=== PATIENT | male | born 1960 | race Caucasian/White ===

== ENCOUNTER → 2020-01-13 06:10 | Outpatient (CLI) | payer BC, MEDICAID, SELFPAY ==
--- NOTE | 2020-01-13 06:13 | CA_ITS ---
APPROVED REPORT EXAM: Comprehensive 2D, Doppler, and color-flow Echocardiogram Certified Hyperbaric Technician: Valentine Almanza RDCS Ht: 5 ft 9 in Wt: 274lbs BSA: 2.36 BP: 126/76 mmHg Indications: CP,CAD,HTN,HLP,OBESITY,SOA 2D Dimensions LVOT 1.90 cm (M/F) 1.5-2.5 M-Mode Dimensions RVDd 4.04 cm (0.9-2.6) LVDd 6.34 cm (3.5-5.7) LVDs 4.04 cm (3.5-5.7) IVSd 0.66 cm (0.6-1.1) PWd 0.94 cm (0.6-1.1) EF (Teich) 64.90% FS 36.30% EDV (Teich) 204.10 mL ESV (Teich) 71.70 mL LV Diastology E/A Ratio 1.27 Mitral Valve MV A Velocity 54.00 (40-130 cm/s) Left Ventricle Left atrium is mildly enlarged, left ventricle is normal size, there is no concentric left ventricular hypertrophy, visually estimated ejection fraction 55% with no regional wall motion abnormality, diastolic parameters are within normal range. Right Ventricle Right atrium and right ventricle are mildly enlarged with normal contractility. Aortic Valve Aortic valve is minimally thickened and fibrosed, there is no aortic stenosis or aortic insufficiency. Mitral Valve Mitral valve is grossly normal, there is mild mitral regurgitation. Tricuspid Valve Tricuspid valve is grossly normal, there is mild tricuspid regurgitation, tricuspid regurgitation jet velocity is inadequate for calculation of the right ventricular systolic pressure. Pulmonic Valve Pulmonic valve is poorly visualized. Great Vessels Aortic root is normal size. Pericardium No significant pericardial effusion noted. Conclusion 1. Mild biatrial enlargement, normal left ventricular size, visually estimated ejection fraction 55% with no regional wall motion abnormality, diastolic parameters are within normal range. 2. Mildly enlarged right ventricle with normal contractility. 3. Mild mitral and tricuspid regurgitation. 4. No significant pericardial effusion noted. Electronically signed by : Constantin Medina, 01/13/2020 20:26:39
--- NOTE | 2020-01-13 06:32 | CA_ITS ---
APPROVED REPORT Exam: Pharmacologic Technologist: Ana Stahl Ht: 5 ft 9 in Wt: 270 lbs BSA: 2.35 m2 HR: 70 bpm BP: 146/88 mmHg Indications: Angina Medical History Medications: Amlodipine,,,,, Aspirin,,,,, Ramipril,,,,, FeNOfibrate,,,,, BisOPROLOL,,,,, Stress Test Details Test: LEXISCAN HR Resting HR: 74 bpm Max Heart Rate (APMHR): 161 bpm Max HR Achieved: 99 bpm Target HR (85% APMHR): 136 bpm % of APMHR: 61 Recovery HR: 86 bpm BP Resting BP: 146.0/88.0 mmHg Max BP: 146.0/88.0 mmHg Recovery BP: 138.0/74.0 mmHg ECG Clinical Exercise duration: 04:00 min Highest Stage Achieved: Exercise capacity: 1.0 METs Stress ECG Conclusion Resting ECG: Normal sinus rhythm, low voltage QRS Symptoms: Mild chest discomfort, shortness of air, malaise, mild nausea Arrhythmias/Ectopy: None ST-T Changes: No significant changes. Conclusion: Unremarkable Lexiscan stress. Myoview images reported separately. Electronically signed by : Constantin Medina, 01/13/2020 20:43:45
--- NOTE | 2020-01-13 06:32 | NM_ITS ---
APPROVED REPORT Exam: Nuclear Stress Test Indication: H/O UT, HTN, C.P., SOB, PALPITATIONS Patient Location: Outpatient Stress Tech: Ana Stahl [place] Tech:Cara Medina ARRFede RT(R)(N) Ht: 5 ft 9 in Wt: 270 lbs HR: 70 bpm BP: 146/88 mmHg BSA: 2.35 m2 BMI: 39.8 History: H/O UT, HTN, C.P., SOB, PALPITATIONS Procedure: Patient received a 0.4 mg of intravenous Lexiscan, resting heart rate 70 bpm, resting blood pressure 146/88 mmHg, with Lexiscan maximum heart rate achived was 95 bpm which is Less than 85 % of the maximum predicted heart rate and blood pressure was 125/77 mmHg. Electrocardiogram Resting electrocardiogram showed sinus rhythm right ventricular conduction delay, with Lexiscan there is less than 1.[address] segment depression noted from the baseline EKG. The EKG portion of the Lexiscan Myoview is nondiagnostic. Cardiac Stress and Resting SPECT Images: Cardiac Stress and Resting SPECT images were obtained using technetium 99m Myoview 31.5 mCi stress and 10.13 mCi at rest. Gated SPECT with analysis of segmental wall motion and calculation of the ejection fraction also done. Cardiac stress and resting SPECT images show mild decreased tracer activity in the posterolateral wall which improves on the resting images suggestive of reversible ischemia, computer derived ejection fraction is 62% with no regional wall motion abnormality, right ventricle is normal size and contractility. Conclusion: 1. The EKG portion of the Lexiscan Myoview is nondiagnostic. 2. Scintigraphic evidence of mild reversible ischemia involving the posterolateral wall, computer derived ejection fraction is 62% with no regional wall motion abnormality, right ventricle is normal size and contractility. 3. Abnormal Lexiscan Myoview study. Electronically signed by : Constantin Medina, 01/13/2020 20:46:03
--- NOTE | 2020-01-13 08:53 | HMH.ITSHM ---
Current Home Medications as stated by this patient Tommy Johnston or patient care representative. [] ramipril amlodipine fenofibrate bisoprolol omeprazole
== END ==
PROVIDERS: PCP Family Medicine; Visit Provider Internal Medicine Cardiovascular Disease
DX: E78.2 Mixed hyperlipidemia (principal); F41.9 Anxiety disorder, unspecified; I11.9 Hypertensive heart disease without heart failure; I20.9 Angina pectoris, unspecified; R06.00 Dyspnea, unspecified
CPT/HCPCS: 78452; 93017; 93306; A9502; J2785

== ENCOUNTER 2020-02-02 09:22 | Day surgery (SDC) | payer BC, MEDICAID, SELFPAY ==
[2020-02-02] VITALS (19 sets, daily range): BP systolic 103–134; BP diastolic 63–83; PULSE 56–79; RESP 15–18; TEMP 36.7; O2SAT 89–98; BMI 40.6
--- NOTE | 2020-02-02 | IR_ITS ---
APPROVED REPORT Patient Location: Outpatient Court Administrator: STEPHEN Avendaño RT (R) PROCEDURES Left heart catheterization Left ventriculogram Selective coronary angiogram INDICATION Abnormal Myoview, Angina pectoris Informed consent was obtained prior to the procedure. COMPLICATIONS NONE Estimated Blood Loss: LESS THAN 10 ML TECHNIQUE One percent lidocaine was used to anesthetize the right groin. The right femoral artery was accessed via the Seldinger technique. A 4-Swedish sheath was placed in the right femoral artery. The JL-4 and JR-4 catheter was also used to perform left heart catheterization left ventriculogram and selective coronary angiogram. At the end of the procedure the patient was transferred to the post-op holding area in stable condition for arterial sheath removal.. ANGIOGRAPHIC RESULTS The left main artery Normal The left anterior descending artery Mild proximal and mid vessel 10% luminal irregularities The circumflex artery Nondominant with mild 10% luminal irregularities The right coronary artery Dominant with mild 10% luminal irregularities The CARNEY ventriculogram reveals Normal 65% The left ventricular end-diastolic pressure Moderate to severely elevated at 30 mmHg IMPRESSION Mild vun-[id number] coronary disease Normal ejection fraction Elevated left ventricular end-diastolic pressure consistent with advanced diastolic dysfunction PLAN 1. Medical management 2. We will add Lasix 20 mg daily to current regimen in order to decrease LVEDP while asking patient to also decrease sodium and fluid intake Electronically signed by : Robert Ceja, 02/02/2020 12:18:13
[2020-02-02 10:01] LABS: Basophils # 0.1 K/mm3 (0-0.2); Eosinophils # 0.9 K/mm3 (0.0-0.4); Eosinophils % 9.1 % (0.1-12.0); Hematocrit 40.4 % (42.0-52.0); Hemoglobin 14.2 g/dL (14.1-18.0); Lymphocytes # 2.9 K/mm3 (0.7-4.5); Lymphocytes % 29.1 % (10-50); Mean Corpuscular HGB Conc 35.1 g/dL (31.8-35.4); Mean Corpuscular Hemoglobin 32.7 pg (27.0-31.2); Mean Corpuscular Volume 93.2 fl (80-94); Mean Platelet Volume 8.8 fl (7.4-10.4); Monocytes # 0.5 K/mm3 (0.1-1.0); Monocytes % 4.6 % (1.7-9.3); Neutrophils # 5.5 K/mm3 (1.8-7.8); Neutrophils % 56.2 % (37.0-80.0); Platelet Count 296 K/mm3 (142-424); Red Blood Count 4.34 M/mm3 (4.60-6.20); Red Cell Distribution Width 13.7 % (11.5-17.5); White Blood Count 9.8 K/mm3 (4.8-10.8)
[2020-02-02 10:07] LABS: Chloride 107 mmol/L (98-107); Potassium 4.5 mmoL/L (3.5-5.1); Sodium 140 mmol/L (136-145)
[2020-02-02 10:10] LABS: Anion Gap 18.5 mEq/L (5-15); Blood Urea Nitrogen 23 mg/dl (9-20); Calcium 9.5 mg/dl (8.4-10.2); Carbon Dioxide 19 mmol/L (22.0-30.0); Creatinine Clearance Estimated 94 mL/min (50-200); Estimated Glomerular Filt Rate 48 ml/min (>60); GFR (African American) 58 ML/MIN (>60); Glucose 136 mg/dl (74-100)
[2020-02-02 10:32] LABS: Coronavirus 19 IgG Antibody Negative (Negative); Coronavirus 19 IgM Antibody Negative (Negative)
== END 2020-02-02 14:36 | disposition home or self-care (01) ==
LOC: CATHLAB 09:24
PROVIDERS: PCP Family Medicine; Visit Provider Internal Medicine
DX: I25.118 Atherosclerotic heart disease of native coronary artery with other forms of angina pectoris (principal); I11.0 Hypertensive heart disease with heart failure; I50.30 Unspecified diastolic (congestive) heart failure; E78.5 Hyperlipidemia, unspecified; Z88.2 Allergy status to sulfonamides; Z79.899 Other long term (current) drug therapy
CPT/HCPCS: 80048; 85025; 86328; 93458; 99152; C1725; C1769; J1644; Q9967

== ENCOUNTER 2025-01-14 11:57 | Inpatient (IN) | payer MEDICAID, SELFPAY ==
[2025-01-14] VITALS (14 sets, daily range): BP systolic 132–158; BP diastolic 77–96; PULSE 65–77; RESP 10–20; TEMP 36.8–36.9; O2SAT 87–95; BMI 42.5
--- NOTE | 2025-01-14 11:59 | ECG_ITS ---
APPROVED REPORT Exam: Resting ECG HR:71 bpm ECG Measurements Heart Rate 71 AXES WA 162 P 49 QRSd 113 QRS -38 QT 400 T 40 QTc 422 Conclusion SINUS RHYTHM LEFT AXIS DEVIATION [QRS AXIS < -30] INCOMPLETE RIGHT BUNDLE BRANCH BLOCK [90+ ms QRS DURATION, TERMINAL R IN V1/V2, 40+ ms S IN I/aVL/V4/V5/V6] ABNORMAL ECG UNCONFIRMED REPORT Electronically signed by : Brijesh Gonsalves, 01/14/2025 16:58:54
--- NOTE | 2025-01-14 12:05 | XR_ITS ---
FINAL REPORT CLINICAL HISTORY: Shortness of breath, vapes COMPARISON: None FINDINGS: PA and lateral views of the chest were obtained. There is patchy density in the left perihilar region suspicious for pneumonia. The right lung is clear. The mediastinum has a normal appearance. The cardiac silhouette is unremarkable. IMPRESSION: Probable left perihilar pneumonia without effusion. Reviewed, Interpreted and Dictated by Clarence Soto MD Transcribed by Aparna Evans Authenticated and [facility]
--- OUTSIDE RECORDS SUMMARY | 2025-01-14 12:10 | XMS_ITS | Clinical Summary ---
Author Organization Healthcare Address [address] [place] [address] Care Team Providers Care Driver Messenger Name Role Phone Baltazar Walsh MD Primary Care Provider Family History Medical History Relation Name Comments Heart attack Father Other cancer Mother Relation Name Status Comments Father Mother Social History Tobacco Use Types Packs/Day Years Used Date Smoking Tobacco: Never Alcohol Use Standard Drinks/Week Comments Yes 0 (1 standard drink = 0.6 oz pure alcohol) Alcoholic Drinks/day: Occasional alcohol use Sex and Gender Information Value Date Recorded Sex Assigned at Not on file Legal Sex Male 6:05 PM EDT Gender Identity Not on file Sexual Orientation Not on file Last Filed Vital Signs Vital Sign Reading Time Taken Comments Blood Pressure - - Pulse - - Temperature - - Respiratory Rate - - Oxygen Saturation - - Inhaled Oxygen Concentration - - Weight 118 kg (259 lb 9.5 oz) 08/28/2016 12:46 P M EST Height 175.3 cm (5' 9 ) 02/07/2016 2:24 PM EDT Body Mass Index 38.34 02/07/2016 2:24 PM EDT Plan of Treatment Not on file Care Teams Driver Messenger Relationship Specialty Start Date End Date Baltazar Walsh MD [address] [place] [id number] PCP - General 11/05/20
--- OUTSIDE RECORDS SUMMARY | 2025-01-14 12:10 | XMS_ITS | Referral Summary ---
Author Organization [facility] Care Team Providers Care Head Setter Name Role Phone Carlos Trevino MD Primary Care Provider [phone] Allergies No known active allergies Medications bisoprolol (ZEBETA) 10 MG TABS Take 10 mg by mouth daily. Active fenofibrate (LOFIBRA) 54 MG TABS Take 54 mg by mouth daily. with food - 48 mg Active ramipril (ALTACE) 5 MG CAPS Take 5 mg by mouth daily. Active ALPRAZolam (XANAX) 0.5 MG TABS Take 0.5 mg by mouth at bedtime as needed. Active amlodipine (NORVASC) 10 MG TABSIndications :Smoldering multiple myeloma Take 10 mg by mouth daily. 06/29/2019 Active omeprazole (PRILOSEC) 20 MG CPDRIndications :Smoldering multiple myeloma Take 1 capsule by mouth daily. 30 capsule 07/09/2019 Active furosemide (LASIX) 20 MG TABSIndications :Smoldering multiple myeloma Take 20 mg by mouth daily. Active famotidine (PEPCID) 20 mg TABS Take 20 mg by mouth 2 (two) times daily. 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 Social History Tobacco Use Types Packs/Day Years Used Date Smoking Tobacco: Never Smokeless Tobacco: Never Tobacco Cessation:Counseling Given: Not Answered Alcohol Use Standard Drinks/Week Comments No 0 (1 standard drink = 0.6 oz pur e alcohol) PHQ-2 Answer Date Recorded PHQ-2 Score 0 01/02/2019 Food Insecurities Answer Date Recorded Worried about running out of food Not on file 07/13/2023 Food Bought Not on file 07/13/2023 Housing/Utilities Answer Date Recorded Worried about losing home Not on file 2023 Stayed outside house Not on file 07/13/2023 Unable to get utilities Not on file 07/13/19 Interpersonal Safety Answer Date Record ed Feel physically or emotionally unsafe where curr ently live Not on file 07/13/2023 Harm by anyone Not on file 07/13/2023 Emotionally Harmed Not on file 07/13/2023 Transportation Answer Date Recorded Worried about transportation Not on file Sex and Gender Information Value Date Recorded Sex Assigned at Not on file Legal Sex Male 9:01 PM EDT Gender Identity Not on file Sexual Orientation Not on file 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 Not on file Not on file Last Filed Vital Signs Vital Sign Reading Time Taken Comments Blood Pressure 126/85 10/08/2024 9:57 AM EDT Pulse 70 10/08/2024 9:57 AM EDT Temperature 36.5 C (97.7 F) 10/08/2024 9:57 AM EDT Respiratory Rate - - Oxygen Saturation 95% 10/08/2024 9:57 AM EDT Inhaled Oxygen Concentration - - Weight 129.3 kg (285 lb) 10/08/2024 9:57 AM EDT Height 175.3 cm (5' 9 ) 10/08/2024 9:57 AM EDT Body Mass Index 42.09 10/08/2024 9:57 AM EDT Plan of Treatment Upcoming Encounters Date Type Department Care Team (Late st Contact Info) Description 04/08/2025 10:00 AM EDT Office Visit [facility] [id number] [place] [address] Сергей [place] [id number] [place] [address] Insurance [employer] OTHERS NOT MEDICARE [place] [address] Care Teams Head Setter Relationship Specialty Start Date End Date Carlos Trevino MD PCP - General Family Medicine 04/02/19
--- OUTSIDE RECORDS SUMMARY | 2025-01-14 12:10 | XMS_ITS | Clinical Summary ---
Author Organization [facility] Address [address] [place] [address] Phone Care Team Providers Care Director Of Speech Pathology Name Role Phone Nico Adames MD, Harold Primary Care Provider + Allergies No known active allergies Medications No known medications Active Problems Problem Noted Date Diagnosed Date Migraine Surgical History Surgery Date Site/Laterality Comments APPENDECTOMY KNEE SURGERY Medical History Medical History Date Comments Migraine Social History Tobacco Use Types Packs/Day Years Used Date Smoking Tobacco: Never Alcohol Use Standard Drinks/Week Comments Yes 0 (1 standard drink = 0.6 oz pur e alcohol) occ Sex and Gender Information Value Date Recorded Sex Assigned at Not on file Legal Sex Male 9:03 PM EDT Gender Identity Not on file Sexual Orientation Not on file Obstetrics History Last Filed Vital Signs Vital Sign Reading Time Taken Comments Blood Pressure 173/104 10/29/2011 7:12 AM EDT Pulse 92 10/29/2011 7:12 AM EDT Temperature 36.9 C (98.4 F) 10/29/2011 5:28 AM EDT Respiratory Rate 16 10/29/2011 5:28 AM EDT Oxygen Saturation 94% 10/29/2011 7:12 AM EDT Inhaled Oxygen Concentration - - Weight - - Height - - Body Mass Index - - Plan of Treatment Health Maintenance Due Date Last Done Comments Annual Wellness Exam 01/08/1964 Hepatitis C Screening 1979 DTaP/TDaP/Td (1 - Tdap) 01/08/1980 Cologuard 2006 FIT 2006 Sigmoidoscopy 2006 Virtual Colonography 2006 Pneumococcal Vaccine 50+ (1 of 1 - PCV) 2011 Zoster (1 of 2) 2011 Colon Cancer Screening 08/26/2017 Colonoscopy 08/26/2017 08/26/2014 COVID-19 Vaccine (1 - 2023-2 5 season) 2024 Influenza Vaccine (#1) 2025 Hepatitis B Vaccine Aged Out No longe r eligible based on patient's age to complete this topic Meningococcal B Vaccine Aged Out No l onger eligible based on patient's age to complete this topic Insurance [facility] * Guarantor: Tommy Johnston Account Type Relation to Patient Date of Phone Billing Address [place] Personal Family Self Care Teams Director Of Speech Pathology Relationship Specialty Start Date End Date Baltazar Walsh MD [address] [place] [phone] PCP - General Family Medicine 10/29/11
--- OUTSIDE RECORDS SUMMARY | 2025-01-14 12:10 | XMS_ITS | Clinical Summary ---
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 Family History Medical History Relation Name Comments Blood Disorder Mother Relation Name Status Comments Daughter 1 Alive Daughter 2 Alive Daughter 3 Alive Daughter 4 Alive Father Alive Mother Sister 1 Alive Sister 2 Alive Son 1 Alive Son 2 Alive Social History Tobacco Use Types Packs/Day Years [...] Description 04/08/2025 10:00 AM EDT Office Visit [facility] [id number] [place], [place] [id number] Сергей Jennings [place] [id number] [place] [phone] Health Maintenance Due Date Last Done Comments Hepatitis C Screening 1961 DTap,Tdap,and Td (1 - Tdap) 01/08/1972 Pneumococcal 50+ (1 of 2 - PCV) 01/08/1980 Colonoscopy 2006 PSA YEARLY 2011 Shingrix (#1) 2011 RSV Vaccine (60+ or ) (1 - Risk 60-74 years 1-dose series) 2021 Influenza Vaccine (#1) 2025 HPV Aged Out No longer eligi ble based on patient's age to complete this topic Meningococcal conjugate [place] 4 (MCV4) Aged Out No longer eligible b ased on patient's age to complete this topic RSV Immunization (<20 months) Aged Out No longer eligible based on patient's age to complete this topic Insurance [employer]TH[employer] NOT MEDICARE MEDICAID [place] Care Teams Electron Tube Assembler Relationship Specialty Start Date End Date Carlos Trevino MD PCP - General Family Medicine 04/02/19
--- OUTSIDE RECORDS SUMMARY | 2025-01-14 12:10 | XMS_ITS | Clinical Summary ---
Author Organization [facility] Address [address] [place] [id number] Care Team Providers Care Forestry Laborer Name Role Phone Nico Adames MD, Baltazar Primary Care Provider + Source Comments This information has been disclosed to you from confidential records protectedfrom disclosure by state law. You shall make no further disclosure of thisinformation without the specific, written, and informed release of theindividual to whom it pertains, or as otherwise permitted by law. A generalauthorization for the release of medical or other information is not sufficientfor the purposes of therelease of HIV test results or diagnoses. [id number] Allergies No known active allergies Medications ramipril (ALTACE) 10 MG capsule Take 2.5 mg by mouth daily. Active aspirin-acetami nophen-caffeine (EXCEDRIN) 250-250-65 mg per tablet Take 1 tablet by mouth every 6 hours as needed for Pain. Active ranitidine (ZANTAC) 150 MG tablet Take 150 mg by mouth 2 times a day. Active fenofibrate micronized (TRICOR) 54 MG tablet Take 54 mg by mouth daily. Active bisoprolol (ZEBETA) 10 MG tablet Take 10 mg by mouth daily. Active ALPRAZolam (XANAX) 0.5 MG tablet Take 0.5 mg by mouth at bedtime as needed for Sleep (1 tablet by mouth at bedtime as needed). Active traMADol (ULTRAM) 50 mg tabletIndicatio ns:Smoldering multiple myeloma,Hip pain, acute, left Take 1 tablet 1 hour prior, again with MRI if first tablet did not help 2 tablet 06/04/2017 Active Active Problems Problem Noted Date Diagnosed Date Hypertension 06/24/2013 Migraine headache 06/24/2013 Bacteremia due to Streptococcus 06/23/2013 Disturbances of sensation of smell and taste 05/2010 Family History Medical History Relation Comments Asthma Father Cancer Father Heart disease Father Diabetes Maternal Aunt Cancer Mother Cancer Paternal Uncle Cancer Sister Relation Status Comments Father Alive Maternal Aunt Mother Paternal Uncle Sister Social History Tobacco Use Types Packs/Day Years Used Date Smoking Tobacco: Never Smokeless Tobacco: Never Alcohol Use Standard Drinks/Week Comments Yes 0 (1 standard drink = 0.6 oz pur e alcohol) Sex and Gender Information Value Date Recorded Sex Assigned at Not on file Legal Sex Male 9:08 PM EST Gender Identity Not on file Sexual Orientation Not on file Last Filed Vital Signs Vital Sign Reading Time Taken Comments Blood Pressure 125/78 06/14/2017 1:27 PM EST Pulse 73 06/14/2017 1:27 PM EST Temperature 36.3 C (97.3 F) 06/14/2017 1:27 PM EST Respiratory Rate 12 12/20/2016 9:58 AM EDT Oxygen Saturation 95% 06/14/2017 1:27 PM EST Inhaled Oxygen Concentration 95% 06/14/2017 1 :27 PM EST Weight 124.4 kg (274 lb 4.8 oz) 06/14/2017 1:27 PM EST Height 175.3 cm (5' 9 ) 06/14/2017 1:27 PM EST Body Mass Index 40.51 06/14/2017 1:27 PM EST Plan of Treatment [place] [address] BLUE ACCESS Advance Directives For more information, please contact: [phone] * Full Code (Latest Code Status on File) Date Activated Date Inactivated Comments 06/23/2013 9:26 PM 06/26/2013 5:08 PM Care Teams Forestry Laborer Relationship Specialty Start Date End Date Baltazar Walsh MD [address] [place] [address] PCP - General Family Medicine 06/23/13
[2025-01-14 12:16] LABS: Hematocrit 43.2 % (42.0-52.0); Hemoglobin 14.2 g/dL (14.1-18.0); Immature Granulocytes % 1.3 %; Mean Corpuscular HGB Conc 32.9 g/dL (31.8-35.4); Mean Corpuscular Hemoglobin 30.6 pg (27.0-31.2); Mean Corpuscular Volume 93.1 fl (80-94); Nucleated Red Blood Cells % 0 %; Platelet Count 209 K/mm3 (142-424); Red Blood Count 4.64 M/mm3 (4.60-6.20); Red Cell Distribution Width-SD 47.8 fL; White Blood Count 10.7 K/mm3 (4.8-10.8)
--- NOTE | 2025-01-14 12:17 | ED_ITS ---
<Statement entered by Brijesh Gonsalves MD - 01/14/25 16:47> EKG independently interpreted by myself demonstrate normal sinus rhythm with no acute ischemic ST changes. Has borderline depressions in V2, but nothing continuous. Not acutely actionable. I was consulted by the MARY, and we discussed the complexity of problems being addressed. I approved the treatment and management plan for this patient's care in the emergency department, thus performing a substantial portion of the medical decision making. Brijesh Gonsalves MD Discharge Plan Disposition Patient Disposition: Still a Patient Prescriptions Prescriptions: No Action cltayjn-xkdnsdjguavrb-fegblqgl [Excedrin Migraine] 250-250-65 mg tablet 1 tab PO Q4-6H PRN (Reason: pain) meloxicam 15 mg tablet 15 mg PO DAILY omeprazole 40 mg capsule,delayed release(DR/EC) See Rx Instructions .ROUTE .COMPLEX Qty: 90 3RF Dose Instruction: TAKE ONE CAPSULE BY MOUTH DAILY FOR STOMACH Rx Instructions: TAKE ONE CAPSULE BY MOUTH DAILY FOR STOMACH fenofibrate nanocrystallized 48 mg tablet 48 mg PO DAILY Qty: 90 5RF amlodipine 10 mg tablet 10 mg PO DAILY Qty: 90 3RF ramipril 5 mg capsule 5 mg PO DAILY Qty: 90 3RF Rx Instructions: take one capsule by mouth once daily bisoprolol fumarate 10 mg tablet 10 mg PO DAILY Qty: 90 3RF Referrals Follow up/Referrals: Provider,ReferralMD [Primary Care Provider, Medical] - See instructions Print Language Print Language: Lithuanian Discharge ED Provider: Brijesh Gonsalves [facility] General Chief Complaint: Chest Pain Stated Complaint: Chest Pain Time Seen by Provider: 01/14/25 12:00 Mode of Arrival: Ambulatory Source of Information: Patient Description of Symptoms (Recalled from ER Triage Doc. by RN): Patient presents to ED for intermittent chest pain since Sunday, c/o shortness of breath. S/s worse on exertion. Sent to ED from [facility] supervisor office for changes on EKG and persistent s/s. History of Present Illness HPI narrative: 65-year-old male presents to the ED for chest pain with been coming and going since Sunday with shortness of breath. Patient states shortness of breath and chest tightness is worse with exertion. 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 Related Data Home Medications ?Medication ?Instructions ?Recorded ?Confirmed ffgsont-tmcsehhjdvesb-tboreeae 250 1 tab PO Q4-6H PRN pain 09/17/17 01/14/25 mg-250 mg-65 mg tablet (Excedrin Migraine) meloxicam 15 mg tablet 15 mg PO DAILY 12/19/2212/24 Previous Rx's ?Medication ?Instructions ?Recorded omeprazole 40 mg capsule,delayed See Rx Instructions . Route 04/01/24 release .COMPLEX #90 caps fenofibrate nanocrystallized 48 mg 48 mg PO DAILY #90 tabs 05/30/24 tablet amlodipine 10 mg tablet 10 mg PO DAILY High blood pr essure 09/15/24 #90 tabs bisoprolol fumarate 10 mg tablet 10 mg PO DAILY High b lood pressure 09/15/24 #90 tabs ramipril 5 mg capsule 5 mg PO DAILY High blood pre ssure 09/15/24 #90 caps Allergies Allergy/AdvReac Type Severity Reaction Status Date / Time Sulfa (Sulfonamide AdvReac Verified 01/14/25 11:22 Antibiotics) [facility] Disclaimer: The information contained in this section may have been updated after the patient was seen, as this information can be updated by other users. Medical History , [employer]) Unstable angina Elevated left ventricular end-diastolic pressure (LVEDP) Dyspnea Angina pectoris HLD (hyperlipidemia) Coronary arteriosclerosis Right bundle branch block Hypertensive heart disease Family History , [employer]) No significant family history Social History , [employer]) Smoking Status: Never smoker alcohol intake: never substance use type: denies use current occupational status: employed Travel in the last 8 weeks?: Inside the [place] household members: spouse housing: house current occupational exposures/hazards: No caffeine: Yes Have you lived/traveled outside US in past 30 days?: No Contact w/someone who lives/traveled outside US past 30 days?: No Exposure to someone with infectious disease in past 14 days?: No Do you have a fever (greater than 100.4 F or 38 C)?: No Have you tested positive for COVID-19?: No Exposed to someone with COVID-19 in past 14 days?: No Do you have a sore throat?: No Do you have a cough?: No Do you have any weakness?: No Do you have any diarrhea?: No Are you experiencing any unusual bleeding?: No Do you have any muscle aches/pain?: No Do you have any abdominal pain?: No Are you experiencing loss of taste or smell?: No Other Medical History Have you received the Flu Vaccine for this season: No Have you received the Pneumonia Vaccine: No ROS Obtained: Yes All systems reviewed & no additional complaints except as documented Constitutional Constitutional: Reports system reviewed and no additional complaints, except as documented Cardiovascular Cardiovascular: Reports system reviewed and no additional complaints, except as documented, Reports as per HPI, Reports chest pain, Reports chest pain with activity, Reports dyspnea and Reports dyspnea on exertion Respiratory Respiratory: Reports system reviewed and no additional complaints, except as documented, Reports as per HPI, Reports shortness of breath, Reports dyspnea and Reports dyspnea on exertion Physical Exam General General appearance: alert and in no apparent distress ENT ENT exam: Present normal exam Respiratory Respiratory exam: Present normal lung sounds bilaterally Cardiovascular Cardiovascular exam: Present regular rate and normal rhythm Abdominal Exam Abdominal exam: Present soft Neurological Exam Neurological exam: Present alert and oriented X3 Skin Skin exam: Present warm and intact HEART Score HEART Score HEART Score assessment performed?: Yes History (anamnesis): Moderately suspicious ECG: Normal Age: 45-65 years Risk factors: Atherosclerosis history Troponin: </= normal limit HEART Score: 4 Critical Care Critical Care Time Critical Care Time: No Medical Decision Making Medical Records Medical records reviewed: Yes I reviewed the patient's medical records. Trino Inquiry Pt receiving controlled substance: No Vital Signs Vital Signs: 01/14/25 12:09 01/14/25 12:09 01/14/25 13:00 Temperature 98.5 F 98.5 F Temperature Source Oral Oral Pulse Rate 72 66 Pulse Rate [Right Radial] 72 Respiratory Rate 20 20 10 L Blood Pressure 157/96 H 137/77 Blood Pressure [Right Arm] 157/96 H Blood Pressure Mean 97 Blood Pressure Mean [Right Arm] 116 02 Sat by Pulse Oximetry 95 95 90 L Oxygen Delivery Method Room Air Room Air 01/14/25 13:30 01/14/25 14:27 01/14/25 14:30 Temperature Temperature Source Pulse Rate 65 69 67 Pulse Rate [Right Radial] Respiratory Rate 16 19 17 Blood Pressure 132/77 138/85 150/90 H Blood Pressure [Right Arm] Blood Pressure Mean 95 Blood Pressure Mean [Right Arm] 02 Sat by Pulse Oximetry 95 88 L 88 L Oxygen Delivery Method Lab Data Lab results reviewed: Yes I reviewed the patient's lab results. Labs: Lab Results 01/14/25 12:07: VBG pH 7.38, VBG pCO2 34.5 L, VBG pO2 37.5, VBG HCO3 19.7 L, VBG Total CO2 20.8 L, VBG O2 Saturation 71.5 H, VBG Base Excess -5.5 L, VBG Lactic Acid 1.7 01/14/25 12:08: WBC 10.7, RBC 4.64, Hgb 14.2, Hct 43.2, MCV 93.1, MCH 30.6, MCHC 32.9, RDW 14.0, Plt Count 209, MPV 11.6 H, Neut % (Auto) 68.0, Lymph % (Auto) 18.2, [place] % (Auto) 8.0, Eos % (Auto) 3.8, Baso % (Auto) 0.7, Neut # (Auto) 7.3, Lymph # (Auto) 2.0, [place] # (Auto) 0.9, Eos # (Auto) 0.4, Baso # (Auto) 0.1, PT 10.9, INR 0.98, D-Dimer 2.49 H, Sodium 137, Potassium 4.8, Chloride 107, Carbon Dioxide 23, Anion Gap 11.8, BUN 19, Creatinine 1.20, Estimated Creat Clear 60, Estimated GFR 61, Est GFR ( Amer) 74, Glucose 168 H, Calcium 9.5, Total Bilirubin 1.1, AST 36, ALT 37, Alkaline Phosphatase 66, Troponin I 0.01, Total Protein 8.9 H, Albumin 4.3, Globulin 4.6 H, Albumin/Globulin Ratio 0.9 L 01/14/25 15:10: Troponin I < 0.01 01/14/25 12:08 01/14/25 12:08 Response Orders (Tests/Meds): ED MEDICATIONS Generic Name Dose Route Start Last Admin Trade Name Freq PRN Reason Stop Dose Admin Enoxaparin Sodium 125 mg 01/14/25 16:00 Enoxaparin 100mg/Ml Syringe 1 mg/kg (125 mg) 08/22/25 15:59 SUBCUT Q12H RAMOS Ceftriaxone Sodium 2 gm/ 100 mls @ 200 mls/hr 01/14/25 16:00 Sodium Chloride IV 01/24/25 15:59 Q24H RAMOS Iopamidol 75 ml 01/14/25 13:54 01/14/25 14:02 Iopamidol-370 (76%);100ml Bottle IV 01/14/25 13:55 75 ml ONCE ONE Administration Sodium Chloride 50 ml 01/14/25 13:54 01/14/25 14:02 0.9 % Sodium Chloride 50 Ml Vial IV 01/14/25 13:55 50 ml ONCE ONE Administration Sodium Chloride 10 ml 01/14/25 13:54 01/14/25 14:02 Sodium Chloride 0.9% 10ml Syr (Rad Only) IV 01/14/25 13:55 10 ml ONCE ONE Administration Discontinued Medications Generic Name Dose Route Start Last Admin Trade Name Freq PRN Reason Stop Dose Admin Aspirin 324 mg 01/14/25 12:08 01/14/25 12:21 Aspirin 81mg Chewable Tablet PO 01/14/25 12:09 324 mg ONCE ONE Administration ORDERS Category Date Time Status CTA Chest [CT angio chest - dissection] Stat Cat Scan 01/14/25 13:46 Completed Chest XR 2 view (NOT portable) [XR chest 2V] Stat Exams 01/14/25 12:05 Completed CBC w/Auto Diff [Complete Blood Count Auto Diff] Stat Lab 01/14/25 12:08 Completed CMP [Comprehensive Metabolic Panel] Stat Lab 01/14/25 12:08 Completed D-Dimer Stat Lab 01/14/25 12:08 Completed HIV Combo Routine Lab 01/14/25 12:08 Received Hepatitis C Ab Qual. W/ RFX Routine Lab 01/14/25 12:08 Received PT INR [Prothrombin Time INR] Stat Lab 01/14/25 12:08 Completed Trop I [Troponin I] Stat Lab 01/14/25 12:08 Completed Troponin I Q3H Lab 01/14/25 15:10 Completed Troponin I Q3H Lab 01/14/25 18:15 Ordered Venous Blood Gas Stat RT 01/14/25 12:07 Completed CA echo doppler complete Stat Y 01/14/25 15:53 Completed MDM Narrative Medical Decision Narrative: In summary patient is a 65-year-old male who presents to the emergency department for evaluation of shortness of breath chest tightness and chest pain that comes and goes.. Patient is blood pressure elevated 150/90 O2 sat 88 on room air upon arrival, afebrile. Unremarkable physical exam. Differential diagnosis includes MO, PE, pneumonia,. Initial workup will be conducted with labs, CT, EKG,. Initial inventions include CT, p.o. challenge, labs. Initial workup reviewed by me elevated D-dimer, CT positive for bilateral PE. Upon repeat evaluation patient is lying in bed comfortably at bedside. Given this spoke with Dr. Ceja he recommends Lovenox 1 mg/kg, echo, and plan for possible thrombectomy in the a.m. Spoke with hospitalist agreed to admit. Discussed with patient and both agreeable
[2025-01-14 12:21] LABS: Chloride 107 mmol/L (98-107)
[2025-01-14] MEDS: ASPIRIN 81MG CHEWABLE TABLET 324 MG PO (12:21)
[2025-01-14 12:22] LABS: Albumin Level 4.3 g/dl (3.5-5.0); Potassium 4.8 mmoL/L (3.5-5.1); Sodium 137 mmol/L (136-145)
[2025-01-14 12:25] LABS: Alanine Aminotransferase 37 U/L (12-78); Albumin/Globulin Ratio 0.9 (1.1-1.8); Alkaline Phosphatase 66 U/L (38-126); Anion Gap 11.8 mEq/L (5-15); Aspartate Amino Transferase 36 U/L (17-59); Bilirubin,Total 1.1 mg/dl (0.2-1.3); Blood Urea Nitrogen 19 mg/dl (9-20); Calcium 9.5 mg/dl (8.4-10.2); Carbon Dioxide 23 mmol/L (22.0-30.0); Creatinine Clearance Estimated 60 mL/min (50-200); Creatinine,Serum 1.20 mg/dl (0.66-1.25); Estimated Glomerular Filt Rate 61 ml/min (>60); GFR (African American) 74 ML/MIN (>60); Globulin 4.6 g/dL (1.3-3.2); Glucose 168 mg/dl (74-100); INR 0.98 (0.9-1.1); Prothrombin Time 10.9 seconds (10.1-12.5); Total Protein,Serum 8.9 g/dl (6.3-8.2)
[2025-01-14 12:29] LABS: VBG HCO3 19.7 mmol/L (23-30); VBG PCO2 34.5 mmol/L (35-51); VBG PH 7.38 mmol/L (7.31-7.41); VBG PO2 37.5 mmol/L (28-40)
[2025-01-14 12:30] LABS: Lactate Venous 1.7 mmol/L (0.4-2.0)
[2025-01-14 12:55] LABS: Troponin I 0.01 ng/ml (0.00-0.034)
--- NOTE | 2025-01-14 13:46 | CT_ITS ---
PROCEDURE INFORMATION: Exam: CTA Chest With Contrast Exam date and time: 01/14/2025 1:56 PM Age: 65 years old Clinical indication: Shortness of breath; Additional info: Hypertension and SOA TECHNIQUE: Imaging protocol: Computed tomographic angiography of the chest with contrast. Exam focused on the arteries. 3D rendering (Not supervised by radiologist): MIP and/or 3D reconstructed images were created by the technologist. Radiation optimization: All CT scans at this facility use at least one of these dose optimization techniques: automated exposure control; mA and/or kV adjustment per patient size (includes targeted exams where dose is matched to clinical indication); or iterative reconstruction. Contrast material: ISO 370; Contrast volume: 80 ml; Contrast route: INTRAVENOUS (IV); COMPARISON: CR XR CHEST 2V 01/14/2025 12:21 PM FINDINGS: Pulmonary arteries: Filling defects consistent with pulmonary emboli in the right, middle, and lower upper lobar, segmental, and subsegmental branches. Pulmonary emboli in the left upper, lingular, and lower lobar arteries, segmental and subsegmental branches. Aorta: Unremarkable. No aortic aneurysm. No aortic dissection. Lungs: Nodule in the medial left upper lobe measuring 2.1 x 1.2 cm axial. Additional patchy and confluent ground-glass opacities more cephalad in the left upper lobe/left mid lung. Not distinctly wedge-shaped in morphology. Pleural spaces: Unremarkable. No pneumothorax. No pleural effusion. Heart: Cardiomegaly. No pericardial fluid. No evidence of cardiac strain. RV/LV ratio is 1. Pulmonary trunk measures 3.5 cm in diameter round mildly dilated. Lymph nodes: Unremarkable. No enlarged lymph nodes. Bones/joints: Unremarkable. No acute fracture. Soft tissues: Epidermoid cyst in the central anterior chest wall measuring 1.6 x 1.7 cm. IMPRESSION: 1. PE in the bilateral upper, mid, and lower lobar arteries, segmental and subsegmental branches. 2. No evidence of cardiac strain. Cardiomegaly. 3. Left upper lobar solid and ground-glass nodules and patchy opacities may be infectious (including atypical) versus inflammatory. Small pulmonary infarcts are not excluded.
[2025-01-14] MEDS: SODIUM CHLORIDE 0.9% 10ML SYR (RAD ONLY) 10 ML IV (14:02)
[2025-01-14] MEDS: 0.9 % SODIUM CHLORIDE 50 ML VIAL IV (14:02)
[2025-01-14] MEDS: IOPAMIDOL-370 (76%);100ML BOTTLE 75 ML IV (14:02)
[2025-01-14 14:59] LABS: D-Dimer 2.49 ug/mL (0.0-0.5)
--- NOTE | 2025-01-14 15:53 | CA_ITS ---
APPROVED REPORT EXAM: Comprehensive 2D, Doppler, and color-flow Echocardiogram Soccer Commentator: Ninfa MathewsmermanFERMÍN Ht: 5 ft 8 in Wt: 280lbs BSA: 2.36 BP: 148/102 mmHg Indications: Chest Pain,Shortness of Breath,Bilateral Pulmonary Emboli 2D Dimensions IVSd 1.03 cm M: 0.6-1.2 LVEF (Visual) 53.00 % PWd 0.84 cm M: 0.6 - 1.2 LA Volume 44.00 mL LVDd 5.68 cm M: 4.2 - 5.9 LA Volume Index 18.64 mL/m2 (M/F) 16-34 LVDs 4.11 cm M: 2.5 - 4.0 M-Mode Dimensions LA Diam 4.07 cm (1.9-4.0) TAPSE 2.30 (<1.7) LV Diastology E Decel Time 257 (160-240 msec) E/A Ratio 1.0 Aortic Valve SANDRA Index 2.04 cm2/m2 AoV Peak Eliu. 110.0 (50-130 cm/s) AO Peak GR. 4.80 mmHg AO Mean GR. 2.80 (<5 mmHg) AO VTI 22.3 (18-25 cm) SANDRA (VTI) 4.93 (2.5-4.5 cm2) Mitral Valve MV E Max Eliu. 58.0 (40-130 cm/s) MV A Velocity 61.0 (40-130 cm/s) E/A Ratio 0.95 MV PHT 75.0 ms Pulmonary Valve PV Peak Velocity 63.0 (50-150 cm/s) Left Ventricle The left ventricle is normal size. The left ventricular systolic function is normal. The left ventricular ejection fraction is within the normal range. There is increased overall thickness. There is normal LV segmental wall motion. Diastolic function is indeterminate. LVEF is 55%. Right Ventricle The right ventricle is mildly to moderately dilated. The right ventricular systolic function is normal. Atria The left atrium size is normal. The right atrium size is normal. There is no Doppler evidence of interatrial shunt. Aortic Valve The aortic valve opens well. There is no aortic valvular stenosis. No aortic regurgitation is present. Mitral Valve The mitral valve is normal in structure. No evidence of mitral valve stenosis. Trace mitral regurgitation. Tricuspid Valve Tricuspid valve is grossly normal in structure and function. Trace tricuspid regurgitation. There is insufficient TR jet to estimate RVSP. Pulmonic Valve The pulmonary valve is normal in structure. Trace pulmonic regurgitation. Great Vessels The aortic root is normal in size. IVC is normal in size and collapses >50% with inspiration. Pericardium There is no pericardial effusion. Other Information Study Quality: Fair Conclusion Normal LV systolic function. Mild to moderate RV dilation with normal RV function. No significant valvular stenosis or regurgitation. Electronically signed by : Alicja Sorto MD 01/15/2025 00:01:33
[2025-01-14 15:59] LABS: Troponin I < 0.01 ng/ml (0.00-0.034)
[2025-01-14 16:27] LABS: Hepatitis C Ab Qual. W/ RFX NEGATIVE (Negative)
--- NOTE | 2025-01-14 17:11 | PC.NURSE ---
arrived by w/c from ED
--- NOTE | 2025-01-14 18:13 | P.HP_ITS ---
History of Present Illness *Admission Date: 01/14/25 *Reason for visit:: chest pain *History of present illness: Patient is a 65-year-old male with past medical history of CAD CKD hypertension hyperlipidemia who presents to the hospital due to complaints of chest pain and shortness of breath. According to the patient his chest pain is worse with exertion as well as any shortness of breath. On further evaluation with CTA chest patient was found to have bilateral pulmonary embolism. No reported fever chills diarrhea constipation dysuria. [facility] Disclaimer: The information contained in this section may have been updated after the patient was seen, as this information can be updated by other users. Medical History , [employer]) Unstable angina Elevated left ventricular end-diastolic pressure (LVEDP) Dyspnea Angina pectoris HLD (hyperlipidemia) Coronary arteriosclerosis Right bundle branch block Hypertensive heart disease Family History , [employer]) No significant family history Social History , [employer]) Smoking Status: Never smoker alcohol intake: never substance use type: denies use current occupational status: employed Travel in the last 8 weeks?: [place] the [place] household members: spouse housing: house current occupational exposures/hazards: No caffeine: Yes Have you lived/traveled outside US in past 30 days?: No Contact w/someone who lives/traveled outside US past 30 days?: No Exposure to someone with infectious disease in past 14 days?: No Do you have a fever (greater than 100.4 F or 38 C)?: No Have you tested positive for COVID-19?: No Exposed to someone with COVID-19 in past 14 days?: No Do you have a sore throat?: No Do you have a cough?: No Do you have any weakness?: No Do you have any diarrhea?: No Are you experiencing any unusual bleeding?: No Do you have any muscle aches/pain?: No Do you have any abdominal pain?: No Are you experiencing loss of taste or smell?: No Other Medical History Have you received the Flu Vaccine for this season: No Have you received the Pneumonia Vaccine: No Review of Systems Review of Systems Review of systems:: pertinent systems reviewed and negative unless documented below Meds Home Medications and Allergies Home Medications ?Medication ?Instructions ?Recorded ?Confirmed ?Type doraman-reawptteswuwg-jnlyytcl 250 1 tab PO Q4-6H PRN pain 09/17/17 01/14/25 History mg-250 mg-65 mg tablet (Excedrin Migraine) fenofibrate nanocrystallized 48 mg 48 mg PO DAILY #90 tabs 05/30/24 01/14/25 Rx tablet amlodipine 10 mg tablet 10 mg PO DAILY High blood pr essure 09/15/24 01/14/25 Rx #90 tabs bisoprolol fumarate 10 mg tablet 10 mg PO DAILY High b lood pressure 09/15/24 01/14/25 Rx #90 tabs ramipril 5 mg capsule 5 mg PO DAILY High blood pre ssure 09/15/24 01/14/25 Rx #90 caps omeprazole 40 mg capsule,delayed 40 mg PO HS GERD 12/2401/14/25 History release New Prescriptions to Start Prescriptions: Allergies Allergy/AdvReac Type Severity Reaction Status Date / Time Sulfa (Sulfonamide AdvReac Verified 01/14/25 11:22 Antibiotics) Exam Data for Last 24 hours Vital signs and Labs for Last 24 Hours: Temp Pulse Resp BP Pulse Ox O2 Del Method O2 Flow Rate 98.5 F 67 16 138/83 90 L Nasal Cannula 2 01/14/25 17:14 01/14/25 17:14 01/14/25 17:14 01/14/25 17:14 01/14/25 16:45 01/14/25 17:14 01/14/25 17:14 Laboratory Results - last 24 hr 01/14/25 12:07: VBG pH 7.38, VBG pCO2 34.5 L, VBG pO2 37.5, VBG HCO3 19.7 L, VBG Total CO2 20.8 L, VBG O2 Saturation 71.5 H, VBG Base Excess -5.5 L, VBG Lactic Acid 1.7 01/14/25 12:08: WBC 10.7, RBC 4.64, Hgb 14.2, Hct 43.2, MCV 93.1, MCH 30.6, MCHC 32.9, RDW 14.0, Plt Count 209, MPV 11.6 H, Neut % (Auto) 68.0, Lymph % (Auto) 18.2, [place] % (Auto) 8.0, Eos % (Auto) 3.8, Baso % (Auto) 0.7, Neut # (Auto) 7.3, Lymph # (Auto) 2.0, [place] # (Auto) 0.9, Eos # (Auto) 0.4, Baso # (Auto) 0.1, PT 10.9, INR 0.98, D-Dimer 2.49 H, Sodium 137, Potassium 4.8, Chloride 107, Carbon Dioxide 23, Anion Gap 11.8, BUN 19, Creatinine 1.20, Estimated Creat Clear 60, Estimated GFR 61, Est GFR ( Amer) 74, Glucose 168 H, Calcium 9.5, Total Bilirubin 1.1, AST 36, ALT 37, Alkaline Phosphatase 66, Troponin I 0.01, Total Protein 8.9 H, Albumin 4.3, Globulin 4.6 H, Albumin/Globulin Ratio 0.9 L, HCV Ab CHANELL w/Rflx PCR Qn Negative, HIV Ag/Ab Combo Qual Negative 01/14/25 15:10: Troponin I < 0.01 I & O for Last 24 hours: Intake & Output 01/11/25 01/12/25 01/13/25 01/14/25 23:59 23:59 23:59 23:59 Weight 127.006 kg Constitutional Constitutional: no acute distress *Routine HEENT Exam Head: Present normocephalic Eye: Present EOMI and PERRL ENT: Present mucous membranes moist *Routine Neck Exam Neck: Present supple; Absent lymphadenopathy *Routine Respiratory Exam Respiratory: Present CTA bilaterally *Routine Cardiovascular Exam Cardiovascular: Present RRR *Routine Abdominal Exam Abdominal: Present soft and normoactive bowel sounds; Absent tenderness *Routine Rectal Exam Rectal:: deferred *Routine Genitalia Exam Genitalia:: deferred *Routine Extremities Exam Extremities: Absent cyanosis, clubbing or edema *Routine Skin Exam Skin: Present warm; Absent rash *Routine Neurological Exam Neurological: Present alert and oriented X3 Assessment and Plan *Assessment and plan (1) Pulmonary embolism: Status: Acute Category: Medical Code(s): I26.99 - Other pulmonary embolism without acute cor pulmonale (2) CAD (coronary artery disease): Status: Chronic Qualifiers: Associated angina: with stable angina Coronary Disease-Associated Artery/Lesion type: [place] artery [place] vs. transplanted heart: [place] heart Qualified Code(s): I25.118 - Atherosclerotic heart disease of [place] coronary artery with other forms of angina pectoris Category: Medical Code(s): I25.10 - Atherosclerotic heart disease of [place] coronary artery without angina pectoris (3) CKD (chronic kidney disease): Status: Chronic Qualifiers: Chronic kidney disease stage: unspecified stage Qualified Code(s): N18.9 - Chronic kidney disease, unspecified Category: Medical Code(s): N18.9 - Chronic kidney disease, unspecified (4) HLD (hyperlipidemia): Status: Chronic Qualifiers: Hyperlipidemia type: mixed hyperlipidemia Qualified Code(s): E78.2 - Mixed hyperlipidemia Category: Medical Code(s): E78.5 - Hyperlipidemia, unspecified Plan Patient is a 65-year-old male with past medical history of CAD CKD hypertension hyperlipidemia who presents to the hospital due to complaints of chest pain and shortness of breath. According to the patient his chest pain is worse with exertion as well as any shortness of breath. On further evaluation with CTA chest patient was found to have bilateral pulmonary embolism. No reported fever chills diarrhea constipation dysuria. Assessment and plan Bilateral pulmonary embolism Consult cardiology Start therapeutic Lovenox Order echocardiogram Monitor on cardiac telemetry Cardiology may plan for possible thrombectomy tomorrow Chronic medical conditions CAD Hypertension Hyperlipidemia CKD stage 3 - Cr aat 1.2 which is around baseline, monitor BMP Resume home aspirin, bisoprolol, ramipril DVT prophylaxis-on therapeutic Lovenox
--- NOTE | 2025-01-14 18:29 | PC.NURSE ---
Pt was admitted from ED on 1LNC. Pt was staying between 88-89%. Pt is now on 2LNC and sats above 90% now. Call light within reach. Continue to monitor
[2025-01-14 19:14] LABS: Troponin I < 0.01 ng/ml (0.00-0.034)
--- NOTE | 2025-01-14 20:18 | PC.NURSE ---
Addendum entered by Rhoda Mcclendon RN 01/15/25 03:33: Patient's oxygen saturations remain > 95% maintained on the venturi mask during resting periods. Addendum entered by Rhoda Mcclendon RN 01/15/25 02:01: Patient's oxygen saturations maintained > 95% after nasal cannula + venturi mask applications. Around 01:50, Kiana Calderón RT notified me that she removed the nasal cannula from under the venturi mask due to the desired readings. Currently, the patient's oxygen saturations are maintaining 97% on 15 L/50% oxygen via venturi mask. Patient continues to rest in bed with eyes closed, and his respirations remain even/unlabored. Addendum entered by Rhoda Mcclendon RN 01/15/25 01:27: Chen Shi MD assessed the patient at the bedside. The patient stated to him + me that he does not wear a CPAP at home ( has not for a long time ). Lung sounds were unchanged from the previous auscultation. Patient continues to deny present difficulties with breathing + other abnormalities. Yuridia ADLER stated that he is OK with the patient maintaining oxygen saturations 88% and above. He also requested respiratory therapists to place a nasal cannula underneath the venturi mask for extra oxygenation. After extra oxygen delivery device placement, the patient's oxygen saturations increased to 96%. Pulse ox site was also moved to the opposite hand (right) because the pulse ox from his left hand was blinking/no longer reading after its replacement. Addendum entered by Rhoda Mcclendon RN 01/15/25 00:58: apparel rental clerk notified me that the patient's oxygen saturations have decreased again to 84% to 86% maintained (> 2 minutes). I went to check on the patient to find him continuing to rest with eyes closed, even/unlabored respirations, and no apparent distress. Venturi mask 15 L/50% oxygen remained in the correct position on his face; tubing without kinks. Pulse oximetry was changed; no differences were noted. Chen Shi MD was paged to inform him about the decreasing oxygen saturations on the venturi mask. He stated that he will come assess the patient at the bedside. Addendum entered by Rhoda Mcclendon RN 01/14/25 22:48: Venturi mask 15 L oxygen flow was placed onto the patient. Oxygen saturations increased to 93%. Patient remains without apparent distress. Continuous pulse ox + satellite project site monitor remains intact. Addendum entered by Rhoda Mcclendon RN 01/14/25 22:29: Patient's oxygen saturations started to decrease again during resting period (eyes closed, respirations even and unlabored) to 84%. Respirations remain within 16 to 18 breaths per minute. Respiratory was paged again at this time. Kiana VANEGAS stated that she will place a Venturi mask onto the patient. Addendum entered by Rhoda Mcclendon RN 01/14/25 20:57: Patient's lung sounds were clear and diminished upon auscultation; no adventitious sounds (wheezing, crackles, rhonchi, etc.) were presented. Addendum entered by Rhoda Mcclendon RN 01/14/25 20:34: Respiratory was paged at this time, for the patient's oxygen saturations started to decrease again to 87% and 88% maintained. Kiana VANEGAS stated to increase the patient's oxygen flow to 4 L for now. Patient's oxygen saturations increased to 90% on 4 L via nasal cannula. Patient continues to deny labored work of breathing, and respirations remain even and unlabored. He is resting supine in bed without any further complaints or apparent distress at this time. Original Note: Patient's oxygen flow via nasal cannula was increased from 2 L to 3 L at 19:56 due to decreased oxygen saturations at rest (87% to 88% maintained). Patient's oxygen saturation increased to 91% on 3 L.
[2025-01-15] VITALS (27 sets, daily range): BP systolic 91–151; BP diastolic 53–88; PULSE 60–77; RESP 15–20; TEMP 36.4–36.9; O2SAT 87–100; BMI 42.6
[2025-01-15 06:09] LABS: Hematocrit 42.7 % (42.0-52.0); Hemoglobin 14.1 g/dL (14.1-18.0); Immature Granulocytes % 1.4 %; Mean Corpuscular HGB Conc 33.0 g/dL (31.8-35.4); Mean Corpuscular Hemoglobin 30.9 pg (27.0-31.2); Mean Corpuscular Volume 93.6 fl (80-94); Nucleated Red Blood Cells % 0 %; Platelet Count 200 K/mm3 (142-424); Red Blood Count 4.56 M/mm3 (4.60-6.20); Red Cell Distribution Width-SD 48.4 fL; White Blood Count 10.6 K/mm3 (4.8-10.8)
[2025-01-15 06:18] LABS: Anion Gap 13.3 mEq/L (5-15); Blood Urea Nitrogen 16 mg/dl (9-20); Calcium 9.3 mg/dl (8.4-10.2); Carbon Dioxide 19 mmol/L (22.0-30.0); Chloride 110 mmol/L (98-107); Creatinine Clearance Estimated 56 mL/min (50-200); Creatinine,Serum 1.30 mg/dl (0.66-1.25); Estimated Glomerular Filt Rate 56 ml/min (>60); GFR (African American) 67 ML/MIN (>60); Glucose 156 mg/dl (74-100); Potassium 4.3 mmoL/L (3.5-5.1); Sodium 138 mmol/L (136-145)
[2025-01-15] MEDS: BISOPROLOL 5MG TABLET 10 MG PO (09:59)
[2025-01-15] MEDS: AMLODIPINE 10MG TABLET 10 MG PO (09:59)
[2025-01-15] MEDS: FENOFIBRATE 54MG TABLET 54 MG PO (09:59)
[2025-01-15] MEDS: BUTALB/ACETAMINOPHEN/CAFFEINE 50MG/325MG/40MG TAB 2 EACH PO ×2 (11:07→22:10)
--- NOTE | 2025-01-15 11:25 | IR_ITS ---
APPROVED REPORT Patient Location: Inpatient PROCEDURES Right femoral venous access Catheter placement in the left lower pulmonary artery Left lower lobe selective pulmonary artery angiogram Left lower pulmonary artery mechanical thrombectomy Catheter placement in the right upper pulmonary artery Right upper pulmonary artery selective angiogram Mechanical thrombectomy to the right upper pulmonary artery Right heart catheterization INDICATION Submassive pulmonary embolism Informed consent was obtained prior to the procedure. COMPLICATIONS NONE TECHNIQUE 1% lidocaine used anesthetize the right groin the right femoral vein was accessed via the Salinger technique and a 7 Gibraltarian sheath is placed in the right femoral vein. This was upsized to an 11 Gibraltarian and then 17 Gibraltarian femoral sheath. Under fluoroscopic guidance an angled pigtail catheter was placed in the left pulmonary artery where the pigtail catheter was advanced and an Amplatz Super Stiff wire was placed into the left pulmonary artery. The sheath and penumbra mechanical aspiration catheter were advanced and selective angiography were performed. A large thrombus was evacuated from the left lower lobe which restored parenchymal flow. This was repeated in the right upper pulmonary artery where selective angiography was performed. Excellent angiograph results were obtained with aspiration of large thrombus from the left lower lobe and right upper lobe. At the end of the procedure the apparatus was removed the sheath was removed and hemostasis was achieved using Z stitch patient was transferred to the postop porting in stable condition ANGIOGRAPHIC RESULTS Left lower lobe has a large thrombus nearly occlusive Right upper lobe has a large thrombus nearly occlusive IMPRESSION Massive PEs involving the right upper pulmonary artery segmental branch and left lower lobe pulmonary artery segmental branch Successful mechanical thrombectomy to the right upper pulmonary artery and successful mechanical thrombectomy to the left lower pulmonary artery PLAN 1. Continue with Xarelto 15 mg p.o. twice daily for 21 days followed by 20 mg daily thereafter 2. Evaluation of chronic renal failure 3. IV fluids 4. Repeat CBC chemistry panel the morning Electronically signed by : Robert Ceja MD 01/15/2025 17:32:51
--- NOTE | 2025-01-15 12:14 | P.PN_ITS ---
Subjective *Date: 01/15/25 *Time: 12:14 Interval history: seen at bedside, no fevers overnight, denied CP. His oxygen has been running low and is placed on high flow NC Exam Data for Last 24 hours Vital signs and Labs for Last 24 Hours: Temp Pulse Resp BP Pulse Ox O2 Del Method O2 Flow Rate 98 F 72 18 136/75 98 Room Air 15 01/15/25 11:45 01/15/25 11:45 01/15/25 11:45 01/15/25 11:45 01/15/25 11:45 01/15/25 11:45 01/15/25 06:50 FiO2 50 01/14/25 22:45 Laboratory Results - last 24 hr 01/14/25 12:07: VBG pH 7.38, VBG pCO2 34.5 L, VBG pO2 37.5, VBG HCO3 19.7 L, VBG Total CO2 20.8 L, VBG O2 Saturation 71.5 H, VBG Base Excess -5.5 L, VBG Lactic Acid 1.7 01/14/25 12:08: WBC 10.7, RBC 4.64, Hgb 14.2, Hct 43.2, MCV 93.1, MCH 30.6, MCHC 32.9, RDW 14.0, Plt Count 209, MPV 11.6 H, Neut % (Auto) 68.0, Lymph % (Auto) 18.2, Steele % (Auto) 8.0, Eos % (Auto) 3.8, Baso % (Auto) 0.7, Neut # (Auto) 7.3, Lymph # (Auto) 2.0, [place] # (Auto) 0.9, Eos # (Auto) 0.4, Baso # (Auto) 0.1, PT 10.9, INR 0.98, D-Dimer 2.49 H, Sodium 137, Potassium 4.8, Chloride 107, Carbon Dioxide 23, Anion Gap 11.8, BUN 19, Creatinine 1.20, Estimated Creat Clear 60, Estimated GFR 61, Est GFR ( Amer) 74, Glucose 168 H, Calcium 9.5, Total Bilirubin 1.1, AST 36, ALT 37, Alkaline Phosphatase 66, Troponin I 0.01, Total Protein 8.9 H, Albumin 4.3, Globulin 4.6 H, Albumin/Globulin Ratio 0.9 L, HCV Ab CHANELL w/Rflx PCR Qn Negative, HIV Ag/Ab Combo Qual Negative 01/14/25 15:10: Troponin I < 0.01 01/14/25 18:29: Troponin I < 0.01 01/15/25 05:33: WBC 10.6, RBC 4.56 L, Hgb 14.1, Hct 42.7, MCV 93.6, MCH 30.9, MCHC 33.0, RDW 14.0, Plt Count 200, MPV 12.0 H, Neut % (Auto) 61.3, Lymph % (Auto) 23.8, [place] % (Auto) 8.3, Eos % (Auto) 4.4, Baso % (Auto) 0.8, Neut # (Auto) 6.5, Lymph # (Auto) 2.5, [place] # (Auto) 0.9, Eos # (Auto) 0.5 H, Baso # (Auto) 0.1, Sodium 138, Potassium 4.3, Chloride 110 H, Carbon Dioxide 19 L, Anion Gap 13.3, BUN 16, Creatinine 1.30 H, Estimated Creat Clear 56, Estimated GFR 56 L, Est GFR ( Amer) 67, Glucose 156 H, Calcium 9.3 I & O for Last 24 hours: Intake & Output 01/12/25 01/13/25 01/14/25 01/15/25 23:59 23:59 23:59 23:59 Intake Total 240 / 540 300 / 300 Output Total 0 / 0 500 / 500 Balance 240 / 540 -200 / -200 Weight 127.006 kg 127.55 kg Constitutional Constitutional: no acute distress *Routine HEENT Exam Head: Present normocephalic Eye: Present EOMI and PERRL ENT: Present mucous membranes moist *Routine Neck Exam Neck: Present supple; Absent lymphadenopathy *Routine Respiratory Exam Respiratory: Present decreased breath sounds *Routine Cardiovascular Exam Cardiovascular: Present RRR *Routine Abdominal Exam Abdominal: Present soft and normoactive bowel sounds; Absent tenderness *Routine Extremities Exam Extremities: Absent cyanosis, clubbing or edema *Routine Skin Exam Skin: Present warm; Absent rash *Routine Neurological Exam Neurological: Present alert and oriented X3 Assessment and Plan *Assessment and plan (1) Pulmonary embolism: Status: Acute Category: Medical Code(s): I26.99 - Other pulmonary embolism without acute cor pulmonale (2) CAD (coronary artery disease): Status: Chronic Qualifiers: Coronary Disease-Associated Artery/Lesion type: [place] artery [place] vs. transplanted heart: [place] heart Associated angina: with stable angina Qualified Code(s): I25.118 - Atherosclerotic heart disease of [place] coronary artery with other forms of angina pectoris Category: Medical Code(s): I25.10 - Atherosclerotic heart disease of [place] coronary artery without angina pectoris (3) CKD (chronic kidney disease): Status: Chronic Qualifiers: Chronic kidney disease stage: unspecified stage Qualified Code(s): N18.9 - Chronic kidney disease, unspecified Category: Medical Code(s): N18.9 - Chronic kidney disease, unspecified (4) HLD (hyperlipidemia): Status: Chronic Qualifiers: Hyperlipidemia type: mixed hyperlipidemia Qualified Code(s): E78.2 - Mixed hyperlipidemia Category: Medical Code(s): E78.5 - Hyperlipidemia, unspecified Plan Patient is a 65-year-old male with past medical history of CAD CKD hypertension hyperlipidemia who presents to the hospital due to complaints of chest pain and shortness of breath. According to the patient his chest pain is worse with exertion as well as any shortness of breath. On further evaluation with CTA chest patient was found to have bilateral pulmonary embolism. No reported fever chills diarrhea constipation dysuria. Assessment and plan Bilateral pulmonary embolism Consult cardiology Started on therapeutic Lovenox Order echocardiogram - pending Monitor on cardiac telemetry Cardiology may plan for possible thrombectomy today, discussed with cardiology Chronic medical conditions CAD Hypertension Hyperlipidemia CKD stage 3 - Cr aat 1.2 which is around baseline, monitor BMP Resume home aspirin, bisoprolol, ramipril DVT prophylaxis-on therapeutic Lovenox
--- OUTSIDE RECORDS SUMMARY | 2025-01-15 12:40 | XMS_ITS | Referral Summary ---
Author Organization [facility] 95 Care Team Providers Care Finish Cleaner Name Role Phone Carlos Trevino MD Primary Care Provider [phone] Allergies No known active allergies Medications bisoprolol [...] Description 04/08/2025 10:00 AM EDT Office Visit [facility] [id number] [place] [address] Сергей Jennings [place] [id number] [place] [address] Insurance [employer] ALL OTHERS NOT MEDICARE [place] [address] Care Teams Finish Cleaner Relationship Specialty Start Date End Date Carlos Trevino MD PCP - General Family Medicine 04/02/19
--- OUTSIDE RECORDS SUMMARY | 2025-01-15 12:40 | XMS_ITS | Clinical Summary ---
Author Organization [facility] 95 Care Team Providers Care Metal Sprayer Machined Parts Name Role Phone Carlos Trevino MD Primary Care Provider [phone] Allergies No known active allergies Medications bisoprolol [...] Description 04/08/2025 10:00 AM EDT Office Visit [facility] [id number] [place], [place] [phone] Сергей Jennings [place] [id number] [place] [phone] Health Maintenance Due Date Last Done Comments [...] age to complete this topic Insurance [employer] ALL OTHERS NOT MEDICARE MEDICAID [place] Care Teams Metal Sprayer Machined Parts Relationship Specialty Start Date End Date Carlos Trevino MD PCP - General Family Medicine 04/02/19
--- OUTSIDE RECORDS SUMMARY | 2025-01-15 12:40 | XMS_ITS | Clinical Summary ---
Author Organization Healthcare Address [address] [place] [address] Care Team Providers Care Resident Advisor Name Role Phone Baltazar Walsh MD Primary [...] of Treatment Not on file Care Teams Resident Advisor Relationship Specialty Start Date End Date Baltazar Walsh MD [address] [place] [id number] PCP - General 11/05/20
--- OUTSIDE RECORDS SUMMARY | 2025-01-15 12:40 | XMS_ITS | Clinical Summary ---
Author Organization [facility] Address [address] [place] [address] Phone Care Team Providers Care Vice President Of Operations Name Role Phone Nico Adames MD, Harold [...] patient's age to complete this topic Insurance [facility] * Guarantor: Tommy Johnston Account Type Relation to Patient Date of Phone Billing Address [place] Personal Family Self Care Teams Vice President Of Operations Relationship Specialty Start Date End Date Baltazar Walsh MD [address] [place] [phone] PCP - General Family Medicine 10/29/11
--- OUTSIDE RECORDS SUMMARY | 2025-01-15 12:40 | XMS_ITS | Clinical Summary ---
Author Organization [facility] Address [address] [place] [id number] Care Team Providers Care Shift Supervisor Rn Name Role Phone Nico Adames MD, Baltazar [...] therelease of HIV test results or diagnoses. [id number] Allergies No known active allergies Medications [...] of Treatment [place] [address] BLUE ACCESS Advance Directives For more information, please contact: [phone] * Full Code (Latest Code Status on File) Date Activated Date Inactivated Comments 06/23/2013 9:26 PM 06/26/2013 5:08 PM Care Teams Shift Supervisor Rn Relationship Specialty Start Date End Date Baltazar Walsh MD [address] [place] [address] PCP - General Family Medicine 06/23/13
--- NOTE | 2025-01-15 13:08 | EXP.PULM.CON ---
History of Present Illness History of present illness: Mr. Torres is a 65-year-old male never smoker, no significant prior respiratory complaints, not using any inhalers or oxygen at baseline with a history of CAD CKD hypertension dyslipidemia presented with respiratory distress chest pain found to have pulmonary embolism and pulmonary was called for further evaluation and manage. Worsening respiratory distress and chest pain since Sunday [facility] Disclaimer: The information contained in this section may have been updated after the patient was seen, as this information can be updated by other users. 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) Smoking Status: Never smoker alcohol intake: never substance use type: denies use current occupational status: employed Travel in the last 8 weeks?: Inside the [place] household members: spouse housing: house current occupational exposures/hazards: No caffeine: Yes Have you lived/traveled outside US in past 30 days?: No Contact w/someone who lives/traveled outside US past 30 days?: No Exposure to someone with infectious disease in past 14 days?: No Do you have a fever (greater than 100.4 F or 38 C)?: No Have you tested positive for COVID-19?: No Exposed to someone with COVID-19 in past 14 days?: No Do you have a sore throat?: No Do you have a cough?: No Do you have any weakness?: No Do you have any diarrhea?: No Are you experiencing any unusual bleeding?: No Do you have any muscle aches/pain?: No Do you have any abdominal pain?: No Are you experiencing loss of taste or smell?: No Review of Systems Constitutional Constitutional: Reports anorexia, Reports body ache(s) and Reports fatigue Eyes Eyes: Denies eye discharge, Denies dry eyes, Denies irritation and Denies itchy eyes ENT Ears, Nose, Mouth, and Throat: Denies epistaxis, Denies facial pain, Denies lip swelling and Denies throat swelling *Cardiovascular Cardiovascular: Reports chest pain, Reports dyspnea and Reports dyspnea on exertion *Respiratory Respiratory: Denies change in phlegm color, Denies chest congestion, Denies cough, Reports dyspnea, Reports dyspnea on exertion, Denies excessive phlegm production, Denies hemoptysis, Reports pain on inspiration, Reports pain with cough and Reports wheezing *Gastrointestinal Gastrointestinal: Denies abdominal pain, Denies belching and Denies cramping *Musculoskeletal Musculoskeletal: Reports back pain, Reports myalgias and Reports other (No small joint swelling or Pain) Psychiatric Psychiatric: Denies homicidal ideation and Denies suicidal ideation Endocrine Endocrine: Reports fatigue and Denies heat intolerance Hematologic/Lymphatic Hematologic/Lymphatic: Denies easy bleeding and Denies lymphadenopathy Allergic/Immunologic Allergic/Immunologic: Denies itchy eyes, Denies lip swelling, Denies throat swelling and Reports wheezing Pulmonology Exam Inpatient Vital signs and Labs for Last 24 Hours: Temp Pulse Resp BP Pulse Ox O2 Del Method O2 Flow Rate 98 F 72 18 136/75 98 Room Air 15 01/15/25 11:45 01/15/25 11:45 01/15/25 11:45 01/15/25 11:45 01/15/25 11:45 01/15/25 11:45 01/15/25 06:50 FiO2 50 01/14/25 22:45 Laboratory Results - last 24 hr 01/14/25 12:08: D-Dimer 2.49 H, HCV Ab CHANELL w/Rflx PCR Qn Negative, HIV Ag/Ab Combo Qual Negative 01/14/25 15:10: Troponin I < 0.01 01/14/25 18:29: Troponin I < 0.01 01/15/25 05:33: WBC 10.6, RBC 4.56 L, Hgb 14.1, Hct 42.7, MCV 93.6, MCH 30.9, MCHC 33.0, RDW 14.0, Plt Count 200, MPV 12.0 H, Neut % (Auto) 61.3, Lymph % (Auto) 23.8, [place] % (Auto) 8.3, Eos % (Auto) 4.4, Baso % (Auto) 0.8, Neut # (Auto) 6.5, Lymph # (Auto) 2.5, [place] # (Auto) 0.9, Eos # (Auto) 0.5 H, Baso # (Auto) 0.1, Sodium 138, Potassium 4.3, Chloride 110 H, Carbon Dioxide 19 L, Anion Gap 13.3, BUN 16, Creatinine 1.30 H, Estimated Creat Clear 56, Estimated GFR 56 L, Est GFR ( Amer) 67, Glucose 156 H, Calcium 9.3 I & O for Labs for Last 24 Hours: Intake & Output 01/12/25 01/13/25 01/14/25 01/15/25 23:59 23:59 23:59 23:59 Intake Total 240 / 540 300 / 300 Output Total 0 / 0 500 / 500 Balance 240 / 540 -200 / -200 Weight 280 lb 281 lb 3.2 oz Constitutional: Present moderate distress Head: Present normocephalic and atraumatic ENT: Present normal exam, normal oropharynx and mucous membranes moist Neck: Present normal inspection and full ROM Respiratory: Present respiratory distress and able to speak in complete sentences; Absent prolonged expiratory phase, wheezes, crackles, distant breath sounds or diminished air movement Cardiac: Present S1/S2, Tachycardia and radial pulses present GI: Present soft and distention; Absent tenderness or guarding Skin: Present intact; Absent cyanosis or jaundice Neuro: Present alert, awake and oriented x 3 Extremities: Present normal inspection; Absent clubbing or cyanosis Psychiatric: Present normal affect and cooperative Meds Home Medications and Allergies Home Medications ?Medication ?Instructions ?Recorded ?Confirmed ?Type [id number] 250 1 tab PO Q4-6H PRN headaches 09/17/17 01/14/25 History mg-250 mg-65 mg tablet (Excedrin Migraine) fenofibrate nanocrystallized 48 mg 48 mg PO DAILY #90 tabs 05/30/24 01/14/25 Rx tablet amlodipine 10 mg tablet 10 mg PO DAILY High blood pressure 09/15/24 01/14/25 Rx #90 tabs bisoprolol fumarate 10 mg tablet 10 mg PO DAILY High blood pressure 09/15/24 01/14/25 Rx #90 tabs ramipril 5 mg capsule 5 mg PO DAILY High blood pressure 09/15/24 01/14/25 Rx #90 caps omeprazole 40 mg capsule,delayed 40 mg PO HS 01/14/25 01/14/25 History release famotidine 20 mg tablet 20 mg PO HS 01/15/25 01/15/25 History New Prescriptions to Start Prescriptions: Allergies Allergy/AdvReac Type Severity Reaction Status Date / Time Sulfa (Sulfonamide AdvReac Verified 01/14/25 11:22 Antibiotics) Results Laboratory Findings 01/15/25 05:33 01/15/25 05:33 PT/INR, D-dimer PT 10.9 seconds (10.1-12.5) 01/14/25 12:08 INR 0.98 (0.9-1.1) 01/14/25 12:08 D-Dimer 2.49 ug/mL (0.0-0.5) H 01/14/25 12:08 Abnormal lab findings: Abnormal Labs 01/14/25 01/14/25 01/15/25 12:07 12:08 05:33 RBC 4.56 L MPV 11.6 H 12.0 H Eos # (Auto) 0.5 H D-Dimer 2.49 H VBG pCO2 34.5 L VBG HCO3 19.7 L VBG Total CO2 20.8 L VBG O2 Saturation 71.5 H VBG Base Excess -5.5 L Chloride 110 H Carbon Dioxide 19 L Creatinine 1.30 H Estimated GFR 56 L Glucose 168 H 156 H Total Protein 8.9 H Globulin 4.6 H Albumin/Globulin Ratio 0.9 L Assessment and Plan *Assessment and plan (1) Pulmonary embolism: Status: Acute Category: Medical Code(s): I26.99 - Other pulmonary embolism without acute cor pulmonale (2) Lung nodule: Status: Acute Category: Medical Code(s): R91.1 - Solitary pulmonary nodule (3) Atypical pneumonia: Status: Acute Category: Medical Code(s): J18.9 - Pneumonia, unspecified organism Plan Mr. Torres is a 65-year-old male never smoker, no significant prior respiratory complaints, not using any inhalers or oxygen at baseline with a history of CAD CKD hypertension dyslipidemia presented with respiratory distress chest pain found to have pulmonary embolism and pulmonary was called for further evaluation and manage. History of smoldering multiple myeloma following with a pacu nurse in [place]. Not receiving any treatment at this point of time. Denies any personal history of family history of blood clots/DVT CTA upon admission showed bilateral second mental and subsegmental pulmonary emboli noted. No CT evidence of RV strain. Echocardiogram normal LV function. RV moderately dilated with normal function. Troponins within normal limits at 0.01. D-dimer elevated at 2.49 Left upper lobe 2 cm nodular opacity. Left upper lobe groundglass opacities also noted. Plan: Continue full dose anticoagulation. Likely need indefinite anticoagulation. Will follow with respiratory viral PCR and other infectious workup. Continue ceftriaxone and doxycycline pending clinical improvement Continue oxygen supplementation, currently on Ventimask 40% saturating 96%. Weaned to nasal cannula. History of sleep apnea not on NIV. #Left upper lobe 2.1 cm nodular opacity. More central than peripheral. Atypical for wedge infarction. Will need follow-up imaging as an outpatient basis.
--- NOTE | 2025-01-15 13:34 | CA_ITS ---
FINAL REPORT CLINICAL HISTORY: Extensive pleural embolii FINDINGS: Multiple transverse and longitudinal scans were performed of the femoral popliteal deep venous system, with augmentation and compression maneuvers. Normal phasic flow was noted in the visualized deep venous system. No intraluminal increased echogenicity is noted to suggest thrombus. There is normal compression and augmentation of the venous structures. No abnormal venous collaterals are seen. IMPRESSION: No evidence of deep venous thrombosis of the bilateral lower extremities. Reviewed, Interpreted and Dictated by Clarence Soto MD Transcribed by Aparna Evans Authenticated and [facility]
[2025-01-15 14:16] LABS: Adenovirus,PCR Not Detected (NotDetected); Chlamydophila Pneumoniae, PCR Not Detected (NotDetected); Coronavirus 19, PCR Not Detected (NotDetected); Coronovirus HKU1,PCR Not Detected (NotDetected); Influenza A, PCR Not Detected (NotDetected); Influenza AH1, 2009 Not Detected (NotDetected); Influenza AH1, PCR Not Detected (NotDetected); Influenza AH3,PCR Not Detected (NotDetected); Influenza B, PCR Not Detected (NotDetected); Mycoplasma Pneumoniae, PCR Not Detected (NotDetected); Parainfluenza 1, PCR Not Detected (NotDetected); Parainfluenza 2, PCR Not Detected (NotDetected); Parainfluenza 3, PCR Not Detected (NotDetected); Parainfluenza 4, PCR Not Detected (NotDetected)
--- NOTE | 2025-01-15 14:26 | P.CONCA_ITS ---
History of Present Illness History of Present Illness Consult date: 01/15/25 Requesting physician: Kay Bell Consult reason: chest pain Chief complaint: Chest pain History of present illness: This is a 65-year-old gentleman who presented to the emergency department with complaints of chest pain. He states that his chest pain was a severe 10 out of 10 pain. Is associated with shortness of breath. The patient states that his symptoms were worse with exertion and did improve with rest but did not resolve. He denied any fever, chills, nausea, vomiting or diarrhea. In the emergency department he ruled out for an [place]. He did have a positive D-dimer and a subsequent CTA of the chest which did show multiple bilateral pulmonary emboli. This morning he is on a Venturi mask at 15 L/min due to his shortness of breath and as soon as his oxygen is turned down he desaturates. [facility] Disclaimer: The information contained in this section may have been updated after the patient was seen, as this information can be updated by other users. Medical History (Updated 01/15/25 @ 14:32 by Nenita Chau APRN) Pulmonary embolism CAD (coronary artery disease) Hypertension Atypical pneumonia Lung nodule Unstable angina Elevated left ventricular end-diastolic pressure (LVEDP) Dyspnea Angina pectoris HLD (hyperlipidemia) Coronary arteriosclerosis Right bundle branch block Hypertensive heart disease Family History , [employer]) No significant family history Social History , [employer]) Smoking Status: Never smoker alcohol intake: never substance use type: denies use current occupational status: employed Travel in the last 8 weeks?: Inside the [place] household members: spouse housing: house current occupational exposures/hazards: No caffeine: Yes Have you lived/traveled outside [place] in past 30 days?: No Contact w/someone who lives/traveled outside US past 30 days?: No Exposure to someone with infectious disease in past 14 days?: No Do you have a fever (greater than 100.4 F or 38 C)?: No Have you tested positive for COVID-19?: No Exposed to someone with COVID-19 in past 14 days?: No Do you have a sore throat?: No Do you have a cough?: No Do you have any weakness?: No Do you have any diarrhea?: No Are you experiencing any unusual bleeding?: No Do you have any muscle aches/pain?: No Do you have any abdominal pain?: No Are you experiencing loss of taste or smell?: No Review of Systems Review of Systems Review of systems:: pertinent systems reviewed and negative unless documented below Constitutional Constitutional: Reports system reviewed and no additional complaints, except as documented, Reports fatigue and Reports lethargy Eyes Eyes: Reports system reviewed and no additional complaints, except as documented ENT Ears, Nose, Mouth, and Throat: Reports system reviewed and no additional complai nts, except as documented *Cardiovascular Cardiovascular: Reports system reviewed and no additional complaints, except as documented, Reports chest pain, Reports chest pain at rest, Reports chest pain with activity, Reports dyspnea and Reports dyspnea on exertion *Respiratory Respiratory: Reports system reviewed and no additional complaints, except as documented, Reports dyspnea and Reports dyspnea on exertion *Gastrointestinal Gastrointestinal: Reports system reviewed and no additional complaints, except as documented *Genitourinary Genitourinary: Reports system reviewed and no additional complaints, except as documented *Musculoskeletal Musculoskeletal: Reports system reviewed and no additional complaints, except as documented Integumentary/Breasts Skin/Breast: Reports system reviewed and no additional complaints, except as documented *Neurologic Neurologic: Reports system reviewed and no additional complaints, except as documented Psychiatric Psychiatric: Reports system reviewed and no additional complaints, except as documented Endocrine Endocrine: Reports system reviewed and no additional complaints, except as documented and Reports fatigue Hematologic/Lymphatic Hematologic/Lymphatic: Reports system reviewed and no additional complaints, except as documented Allergic/Immunologic Allergic/Immunologic: Reports system reviewed and no additional complaints, except as documented Exam Data for Last 24 hours Vital signs and Labs for Last 24 Hours: Temp Pulse Resp BP Pulse Ox O2 Del Method O2 Flow Rate 98 F 72 18 136/75 98 Venturi Mask 15 01/15/25 11:45 01/15/25 11:45 01/15/25 11:45 01/15/25 11:45 01/15/25 11:45 01/15/25 14:23 01/15/25 14:23 FiO2 50 01/14/25 22:45 Laboratory Results - last 24 hr 01/14/25 12:08: D-Dimer 2.49 H, HCV Ab CHANELL w/Rflx PCR Qn Negative, HIV Ag/Ab Combo Qual Negative 01/14/25 15:10: Troponin I < 0.01 01/14/25 18:29: Troponin I < 0.01 01/15/25 05:33: WBC 10.6, RBC 4.56 L, Hgb 14.1, Hct 42.7, MCV 93.6, MCH 30.9, MCHC 33.0, RDW 14.0, Plt Count 200, MPV 12.0 H, Neut % (Auto) 61.3, Lymph % (Auto) 23.8, [place] % (Auto) 8.3, Eos % (Auto) 4.4, Baso % (Auto) 0.8, Neut # (Auto) 6.5, Lymph # (Auto) 2.5, [place] # (Auto) 0.9, Eos # (Auto) 0.5 H, Baso # (Auto) 0.1, Sodium 138, Potassium 4.3, Chloride 110 H, Carbon Dioxide 19 L, Anion Gap 13.3, BUN 16, Creatinine 1.30 H, Estimated Creat Clear 56, Estimated GFR 56 L, Est GFR ( Amer) 67, Glucose 156 H, Calcium 9.3 I & O for Last 24 hours: Intake & Output 01/12/25 01/13/25 01/14/25 01/15/25 23:59 23:59 23:59 23:59 Intake Total 240 / 540 300 / 300 Output Total 0 / 0 850 / 850 Balance 240 / 540 -550 / -550 Weight 280 lb 281 lb 3.2 oz Constitutional Constitutional: no acute distress and morbidly obese *Routine HEENT Exam Head: Present normocephalic and atraumatic ENT: Present mucous membranes moist *Routine Neck Exam Neck: Present supple, full ROM and normal carotid upstroke; Absent JVD, carotid bruit or lymphadenopathy *Routine Respiratory Exam Respiratory: Present CTA bilaterally, normal respiratory effort, able to speak in complete sentences and symmetric chest movement *Routine Cardiovascular Exam Cardiovascular: Present RRR, Normal S1 and Normal S2; Absent murmur or gallop *Routine Abdominal Exam Abdominal: Present soft and normoactive bowel sounds; Absent tenderness, distended or organomegaly *Routine Extremities Exam Extremities: Present full ROM, pulses intact and normal capillary refill; Absent cyanosis, clubbing or edema *Routine Skin Exam Skin: Present intact and warm; Absent erythema *Routine Neurological Exam Neurological: Present alert, oriented X3 and CN II-XII intact; Absent sensory deficit or motor deficit Routine Psychiatric Exam Psychiatric: Present normal affect Meds Home Medications and Allergies Home Medications ?Medication ?Instructions ?Recorded ?Confirmed ?Type vaishzl-ythnegxtnsyoz-jxnswrjy 250 1 tab PO Q4-6H PRN headaches 09/17/17 01/14/25 History mg-250 mg-65 mg tablet (Excedrin Migraine) fenofibrate nanocrystallized 48 mg 48 mg PO DAILY #90 tabs 05/30/24 01/14/25 Rx tablet amlodipine 10 mg tablet 10 mg PO DAILY High blood pr essure 09/15/24 01/14/25 Rx #90 tabs bisoprolol fumarate 10 mg tablet 10 mg PO DAILY High b lood pressure 09/15/24 01/14/25 Rx #90 tabs ramipril 5 mg capsule 5 mg PO DAILY High blood pre ssure 09/15/24 01/14/25 Rx #90 caps omeprazole 40 mg capsule,delayed 40 mg PO HS 01/14/25 01/14/25 History release famotidine 20 mg tablet 20 mg PO HS 01/15/25 5 History New Prescriptions to Start Prescriptions: Allergies Allergy/AdvReac Type Severity Reaction Status Date / Time Sulfa (Sulfonamide AdvReac Verified 01/14/25 11:22 Antibiotics) Assessment and Plan *Assessment and plan (1) Pulmonary embolism: Status: Acute Qualifiers: Pulmonary embolism type: multiple subsegmental (without acute cor pulmonale) Qualified Code(s): I26.94 - Multiple subsegmental thrombotic pulmonary emboli without acute cor pulmonale Category: Medical Code(s): I26.99 - Other pulmonary embolism without acute cor pulmonale (2) Atypical pneumonia: Status: Acute Category: Medical Code(s): J18.9 - Pneumonia, unspecified organism (3) Lung nodule: Status: Acute Category: Medical Code(s): R91.1 - Solitary pulmonary nodule (4) CAD (coronary artery disease): Status: Chronic Qualifiers: Coronary Disease-Associated Artery/Lesion type: [place] artery [place] vs. transplanted heart: [place] heart Associated angina: with stable angina Qualified Code(s): I25.118 - Atherosclerotic heart disease of [place] coronary artery with other forms of angina pectoris Category: Medical Code(s): I25.10 - Atherosclerotic heart disease of [place] coronary artery without angina pectoris (5) HLD (hyperlipidemia): Status: Chronic Qualifiers: Hyperlipidemia type: mixed hyperlipidemia Qualified Code(s): E78.2 - Mixed hyperlipidemia Category: Medical Code(s): E78.5 - Hyperlipidemia, unspecified (6) Hypertension: Status: Acute Qualifiers: Hypertension type: primary hypertension Qualified Code(s): I10 - Essential (primary) hypertension Category: Medical Code(s): I10 - Essential (primary) hypertension (7) Hypertensive heart disease: Status: Chronic Qualifiers: Heart failure presence: without heart failure Qualified Code(s): I11.9 - Hypertensive heart disease without heart failure Category: Medical Code(s): I11.9 - Hypertensive heart disease without heart failure Plan Plan: 1. The patient was admitted to the hospital and found to have multiple bilateral pulmonary emboli. He is on high flow oxygen with a Venturi mask at 15 L/min to maintain oxygen saturations. Due to his significant bilateral pulmonary emboli we will plan to proceed with pulmonary angiogram and thrombectomy today. 2. The patient has been educated the risk and benefits of proceeding with pulmonary angiogram and thrombectomy. The patient verbalizes understanding and is agreeable in proceeding with the procedure. 3. The patient will be n.p.o. in preparation for pulmonary angiogram/thrombectomy. 4. The patient does have a history of coronary artery disease. His troponin is negative. No plans for invasive left cardiac catheterization at this time. 5. His blood pressure is well-controlled. Continue ramipril, bisoprolol and amlodipine. 6. Her LDL goal is less than 55. Continue fenofibrate. Will get a lipid panel in the morning. 7. Echocardiogram shows a normal ejection fraction without significant heart strain. 8. The patient is on Lovenox for anticoagulation. He will need to be switched to Xarelto with PE dosing prior to discharge home. 9. The patient's creatinine is 1.3. Will continue to follow. 10. The patient has pneumonia. The patient is getting antibiotics. 11. Further recommendations will be made pending the patient's response to treatment and the results of his pulmonary angiogram and thrombectomy today. Thank you for the opportunity to help participate in the care of this patient. All recommendations and orders are per Dr. Sorto.
[2025-01-15 15:11] LABS: Procalcitonin 0.150 ng/mL (0.0-2.0)
[2025-01-15] MEDS: HEPARIN 1,000 UNITS/500ML NS (CATH LAB) 3000 UNIT IV (16:03)
[2025-01-15] MEDS: FENTANYL 100MCG/2ML VIAL 50 MCG IV (16:03)
[2025-01-15] MEDS: LIDOCAINE 1% 10ML MDV 10 ML IJ (16:03)
[2025-01-15] MEDS: MIDAZOLAM HCL 1MG/ML 5ML VIAL 1 MG IV (16:03)
[2025-01-15] MEDS: 0.9 % SODIUM CHLORIDE 500 ML 25 ML IV (16:04)
[2025-01-15] MEDS: HEPARIN 1,000 UNITS/ML 10ML VIAL (CATH LAB) 5000 UNIT IV (17:20)
[2025-01-15] MEDS: IOPAMIDOL-370 (76%);100ML BOTTLE 250 ML IV (17:43)
[2025-01-15 17:58] LABS: CATHL Activated Clotting Time 314 SEC (74-125)
--- NOTE | 2025-01-15 21:14 | PC.NURSE ---
Venturi mask was removed, oxygen saturations were > 95% maintained. Patient was placed onto 3 L of oxygen via nasal cannula at this time. Continuous pulse ox + echocardiography technologist remains in place. Patient is without apparent distress and denies any present difficulty with his breathing.
[2025-01-15] MEDS: PANTOPRAZOLE 40MG TABLET 40 MG PO (21:20)
--- NOTE | 2025-01-15 21:59 | PC.NURSE ---
pt eating ands sitting up [id number]
--- NOTE | 2025-01-15 23:06 | PC.NURSE ---
Addendum entered by Rhoda Mcclendon RN 01/16/25 04:18: Oxygen saturations are currently 93% to 94% on room air. Patient continues to rest in bed without any apparent distress. Call light within reach. Patient does report having shortness of breath upon ambulation and moderate activity (ex. during dressing + buttoning of gown once this shift); patient recovers during rest. Addendum entered by Rhoda Mcclendon RN 01/16/25 02:25: Oxygen saturations are currently 97% on 1 L of oxygen via nasal cannula. Oxygen delivery device will be removed, attempting wean to room air at this time. Patient continues to rest in bed without any apparent distress; eyes are closed, and respirations are even/unlabored. Addendum entered by Rhoda Mcclendon RN 01/16/25 01:18: Oxygen saturations are currently 98% on 2 L of oxygen via nasal cannula. Oxygen flow will be decreased to 1 L at this time. Addendum entered by Rhoda Mcclendon RN 01/16/25 00:35: Oxygen saturations are currently 99% to 100% on 3 L of oxygen via nasal cannula. Oxygen flow will be decreased to 2 L at this time. Original Note: Kiana Ceja MD called at this time to follow-up on the patient's current status. Oxygenation status (weaned from 15 L venturi mask to 3 L nasal cannula) was also relayed to him; Marcial ADLER requested to make an attempt to wean the patient to room air by the morning this shift. Oxygen saturations remain > 90%, maintained on 3 L of oxygen via nasal cannula.
--- NOTE | 2025-01-15 23:59 | PC.NURSE ---
Nurse is aware of low b/p. Patient does not need anything at this time [id number]
[2025-01-16] VITALS (12 sets, daily range): BP systolic 101–138; BP diastolic 55–80; PULSE 67–110; RESP 15–25; TEMP 36.5–36.6; O2SAT 93–99; BMI 43.0
[2025-01-16] MEDS: DOXYCYCLINE HYCLATE 100 MG in 0.9 % SODIUM CHLORIDE 250 ML 166.667 MG IV ×2 (01:20→13:37)
--- NOTE | 2025-01-16 04:14 | PC.NURSE ---
Blue linen bags were taken out, ice was filled, and bedside table was reorganized and wiped at this time. [id number]
[2025-01-16 06:28] LABS: Hematocrit 36.5 % (42.0-52.0); Hemoglobin 11.7 g/dL (14.1-18.0); Immature Granulocytes % 1.7 %; Mean Corpuscular HGB Conc 32.1 g/dL (31.8-35.4); Mean Corpuscular Hemoglobin 30.5 pg (27.0-31.2); Mean Corpuscular Volume 95.3 fl (80-94); Nucleated Red Blood Cells % 0 %; Platelet Count 186 K/mm3 (142-424); Red Blood Count 3.83 M/mm3 (4.60-6.20); Red Cell Distribution Width-SD 49.5 fL; White Blood Count 9.9 K/mm3 (4.8-10.8)
--- NOTE | 2025-01-16 06:34 | PC.NURSE ---
Trash taken out at 0630
[2025-01-16 06:43] LABS: Anion Gap 10.8 mEq/L (5-15); Blood Urea Nitrogen 18 mg/dl (9-20); Calcium 8.9 mg/dl (8.4-10.2); Carbon Dioxide 21 mmol/L (22.0-30.0); Chloride 108 mmol/L (98-107); Creatinine Clearance Estimated 42 mL/min (50-200); Creatinine,Serum 1.70 mg/dl (0.66-1.25); Estimated Glomerular Filt Rate 41 ml/min (>60); GFR (African American) 49 ML/MIN (>60); Glucose 159 mg/dl (74-100); Potassium 3.8 mmoL/L (3.5-5.1); Sodium 136 mmol/L (136-145)
[2025-01-16 07:08] LABS: Alanine Aminotransferase 47 U/L (12-78); Albumin Level 2.9 g/dl (3.5-5.0); Alkaline Phosphatase 72 U/L (38-126); Aspartate Amino Transferase 51 U/L (17-59); Bilirubin,Direct 0.2 mg/dl (0.0-0.4); Bilirubin,Indirect 0.1 mg/dL (0.0-0.9); Bilirubin,Total 0.3 mg/dl (0.2-1.3); Bilirubin,Unconjugated 0.1 mg/dL (0.0-1.1); Cholesterol 207 mg/dl (140-200); HDL Cholesterol 19 mg/dl (40-60); Total Protein,Serum 6.5 g/dl (6.3-8.2); Triglycerides 344 mg/dl (30-150)
--- NOTE | 2025-01-16 09:43 | EXP.PULM.PN ---
Subjective *Date: 01/16/25 *Time: 11:37 Interval history: No acute respiratory events overnight. Patient admits improving respiratory symptoms. Admits symptoms of dyspnea with exertion on room air. Pulmonology Exam Inpatient Vital signs and Labs for Last 24 Hours: Temp Pulse Resp BP Pulse Ox O2 Del Method O2 Flow Rate 97.8 F 67 15 115/70 96 Room Air 1 01/16/25 04:12 01/16/25 04:12 01/16/25 04:18 01/16/25 04:12 01/16/25 08:00 01/16/25 09:00 01/16/25 03:00 FiO2 50 01/14/25 22:45 Laboratory Results - last 24 hr 01/15/25 13:50: Procalcitonin 0.150 01/15/25 14:10: Chlamy pneumoniae PCR Not detected, Adenovirus (PCR) Not detected, B. pertussis DNA (PCR) Not detected, Coronavirus OC43 (PCR) Not detected, Coronavirus HKU1 (PCR) Not detected, Coronavirus 229E (PCR) Not detected, SARS-CoV-2 (PCR) Not detected, Coronavirus NL63 (PCR) Not detected, Human Metapneumovir PCR Not detected, Influenza A (H1) PCR Not detected, Influ A (H1N1/09) PCR Not detected, Influenza A (H3) PCR Not detected, Influenza Type A (PCR) Not detected, Influenza Type B (PCR) Not detected, M. pneumoniae (PCR) Not detected, Parainfluenza 1 (PCR) Not detected, Parainfluenza 2 (PCR) Not detected, Parainfluenza 3 (PCR) Not detected, Parainfluenza 4 (PCR) Not detected, RSV (PCR) Not detected, Entero/Rhino (PCR) Not detected 01/15/25 17:04: Activated Clotting Time 314 H* 01/16/25 05:38: WBC 9.9, RBC 3.83 L, Hgb 11.7 L, Hct 36.5 L, MCV 95.3 H, MCH 30.5, MCHC 32.1, RDW 14.4, Plt Count 186, MPV 11.9 H, Neut % (Auto) 60.7, Lymph % (Auto) 23.0, [place] % (Auto) 9.8 H, Eos % (Auto) 4.1, Baso % (Auto) 0.7, Neut # (Auto) 6.0, Lymph # (Auto) 2.3, [place] # (Auto) 1.0, Eos # (Auto) 0.4, Baso # (Auto) 0.1, Sodium 136, Potassium 3.8, Chloride 108 H, Carbon Dioxide 21 L, Anion Gap 10.8, BUN 18, Creatinine 1.70 H D, Estimated Creat Clear 42, Estimated GFR 41 L, Est GFR ( Amer) 49 L D, Glucose 159 H, Calcium 8.9, Total Bilirubin 0.3, Direct Bilirubin 0.2, Conjugated Bilirubin 0.0, Indirect Bilirubin 0.1, Unconjugated Bilirubin 0.1, AST 51 D, ALT 47 D, Alkaline Phosphatase 72, Total Protein 6.5 D, Albumin 2.9 L, Triglycerides 344 H, Cholesterol 207 H, LDL Cholesterol Direct 112.16, VLDL Cholesterol 69 H, HDL Cholesterol 19 L, Cholesterol/HDL Ratio 10.9 H Temp Pulse Resp BP Pulse Ox O2 Del Method O2 Flow Rate 98 F 72 18 136/75 98 Room Air 15 01/15/25 11:45 01/15/25 11:45 01/15/25 11:45 01/15/25 11:45 01/15/25 11:45 01/15/25 11:45 01/15/25 06:50 FiO2 50 01/14/25 22:45 Laboratory Results - last 24 hr 01/14/25 12:08: D-Dimer 2.49 H, HCV Ab CHANELL w/Rflx PCR Qn Negative, HIV Ag/Ab Combo Qual Negative 01/14/25 15:10: Troponin I < 0.01 01/14/25 18:29: Troponin I < 0.01 01/15/25 05:33: WBC 10.6, RBC 4.56 L, Hgb 14.1, Hct 42.7, MCV 93.6, MCH 30.9, MCHC 33.0, RDW 14.0, Plt Count 200, MPV 12.0 H, Neut % (Auto) 61.3, Lymph % (Auto) 23.8, [place] % (Auto) 8.3, Eos % (Auto) 4.4, Baso % (Auto) 0.8, Neut # (Auto) 6.5, Lymph # (Auto) 2.5, [place] # (Auto) 0.9, Eos # (Auto) 0.5 H, Baso # (Auto) 0.1, Sodium 138, Potassium 4.3, Chloride 110 H, Carbon Dioxide 19 L, Anion Gap 13.3, BUN 16, Creatinine 1.30 H, Estimated Creat Clear 56, Estimated GFR 56 L, Est GFR ( Amer) 67, Glucose 156 H, Calcium 9.3 I & O for Labs for Last 24 Hours: Intake & Output 01/13/25 01/14/25 01/15/25 01/16/25 23:59 23:59 23:59 23:59 Intake Total 240 / 540 300 / 500 200 / 200 Output Total 0 / 0 1900 / 2200 300 / 300 Balance 240 / 540 -1600 / -1700 -100 / -100 Weight 280 lb 281 lb 3.2 oz 283 lb 9.6 oz Intake & Output 01/12/25 01/13/25 01/14/25 01/15/25 23:59 23:59 23:59 23:59 Intake Total 240 / 540 300 / 300 Output Total 0 / 0 500 / 500 Balance 240 / 540 -200 / -200 Weight 280 lb 281 lb 3.2 oz Constitutional: Present moderate distress Head: Present normocephalic and atraumatic ENT: Present normal exam, normal oropharynx and mucous membranes moist Neck: Present normal inspection and full ROM Respiratory: Present respiratory distress and able to speak in complete sentences; Absent prolonged expiratory phase, wheezes, crackles, distant breath sounds or diminished air movement Cardiac: Present S1/S2, Tachycardia and radial pulses present GI: Present soft and distention; Absent tenderness or guarding Skin: Present intact; Absent cyanosis or jaundice Neuro: Present alert, awake and oriented x 3 Extremities: Present normal inspection; Absent clubbing or cyanosis Psychiatric: Present normal affect and cooperative Assessment and Plan *Assessment and plan (1) Pulmonary embolism: Status: Acute Qualifiers: Pulmonary embolism type: multiple subsegmental (without acute cor pulmonale) Qualified Code(s): I26.94 - Multiple subsegmental thrombotic pulmonary emboli without acute cor pulmonale Category: Medical Code(s): I26.99 - Other pulmonary embolism without acute cor pulmonale (2) Lung nodule: Status: Acute Category: Medical Code(s): R91.1 - Solitary pulmonary nodule (3) Atypical pneumonia: Status: Acute Category: Medical Code(s): J18.9 - Pneumonia, unspecified organism Plan Mr. Torres is a 65-year-old male never smoker, no significant prior respiratory complaints, not using any inhalers or oxygen at baseline with a history of CAD CKD hypertension dyslipidemia presented with respiratory distress chest pain found to have pulmonary embolism and pulmonary was called for further evaluation and manage. 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 Not receiving any treatment at this point of time. Denies any personal history of family history of blood clots/DVT CTA upon admission showed bilateral second mental and subsegmental pulmonary emboli noted. No CT evidence of RV strain. Echocardiogram normal LV function. RV moderately dilated with normal function. Troponins within normal limits at 0.01. D-dimer elevated at 2.49 Left upper lobe 2 cm nodular opacity. Left upper lobe groundglass opacities also noted. Interval update: No acute respiratory events overnight. Status post thrombectomy by cardiology. Improving oxygen requirements. Continue to receive full dose anticoagulation. Complains of respiratory viral PCR panel negative. Afebrile. Hemodynamically stable. No evidence of leukocytosis. History of sleep apnea not on NIV. Plan: Albuterol 4 times daily. Continue oxygen supplementation to maintain O2 saturation goal 90% appropriate on room air this morning saturating 88% recommend 1 L nasal cannula at rest. 6-minute walk testing prior to discharge. Continue full dose anticoagulation, Xeralto. Likely need indefinite anticoagulation. Continue ceftriaxone and doxycycline pending clinical improvement, can be discharged home on cefdinir to complete a total of 5-day course #Left upper lobe 2.1 cm nodular opacity. More central than peripheral. Atypical for wedge infarction. Will need follow-up imaging as an outpatient basis. # # Thank you for involving pulmonary in this patient care. Will follow the patient in pulmonary clinic 1 to 2 weeks postdischarge.
[2025-01-16] MEDS: BISOPROLOL 5MG TABLET 10 MG PO (10:12)
[2025-01-16] MEDS: AMLODIPINE 10MG TABLET 10 MG PO (10:12)
[2025-01-16] MEDS: FENOFIBRATE 54MG TABLET 54 MG PO (10:12)
[2025-01-16] MEDS: BUTALB/ACETAMINOPHEN/CAFFEINE 50MG/325MG/40MG TAB 2 EACH PO (11:12)
[2025-01-16] MEDS: SODIUM CHLORIDE 3% 15ML NEB 3 ML IH (11:25)
--- NOTE | 2025-01-16 11:57 | EXP.CARD.PN ---
Subjective Subjective Date: 01/16/25 Time: 10:30 Principal diagnosis: PE Interval history: This is a 65-year-old gentleman who presented to the emergency department. He was found to have multiple bilateral pulmonary emboli and underwent thrombectomy yesterday. The patient had successful thrombectomy of massive PEs with successful mechanical thrombectomy to the right upper pulmonary artery and successful mechanical thrombectomy of the left pulmonary artery. He tolerated the procedure well. He is now on room air with normal oxygen saturations. He states that he does have a little chest pain and pressure with exertion but this is much better than it was. He has some shortness of breath with exertion as well but this is also improved. He denies any bilateral lower extremity edema. He denies any fever, chills, nausea, vomiting, diarrhea, PND or orthopnea. Exam Data for Last 24 hours Vital signs and Labs for Last 24 Hours: Temp Pulse Resp BP Pulse Ox O2 Del Method O2 Flow Rate 97.8 F 79 16 123/71 96 Room Air 1 01/16/25 09:59 01/16/25 11:25 01/16/25 11:25 01/16/25 09:59 01/16/25 09:59 01/16/25 09:59 01/16/25 03:00 FiO2 50 01/14/25 22:45 Laboratory Results - last 24 hr 01/15/25 13:50: Procalcitonin 0.150 01/15/25 14:10: Chlamy pneumoniae PCR Not detected, Adenovirus (PCR) Not detected, B. pertussis DNA (PCR) Not detected, Coronavirus OC43 (PCR) Not detected, Coronavirus HKU1 (PCR) Not detected, Coronavirus 229E (PCR) Not detected, SARS-CoV-2 (PCR) Not detected, Coronavirus NL63 (PCR) Not detected, Human Metapneumovir PCR Not detected, Influenza A (H1) PCR Not detected, Influ A (H1N1/09) PCR Not detected, Influenza A (H3) PCR Not detected, Influenza Type A (PCR) Not detected, Influenza Type B (PCR) Not detected, M. pneumoniae (PCR) Not detected, Parainfluenza 1 (PCR) Not detected, Parainfluenza 2 (PCR) Not detected, Parainfluenza 3 (PCR) Not detected, Parainfluenza 4 (PCR) Not detected, RSV (PCR) Not detected, Entero/Rhino (PCR) Not detected 01/15/25 17:04: Activated Clotting Time 314 H* 01/16/25 05:38: WBC 9.9, RBC 3.83 L, Hgb 11.7 L, Hct 36.5 L, MCV 95.3 H, MCH 30.5, MCHC 32.1, RDW 14.4, Plt Count 186, MPV 11.9 H, Neut % (Auto) 60.7, Lymph % (Auto) 23.0, [place] % (Auto) 9.8 H, Eos % (Auto) 4.1, Baso % (Auto) 0.7, Neut # (Auto) 6.0, Lymph # (Auto) 2.3, [place] # (Auto) 1.0, Eos # (Auto) 0.4, Baso # (Auto) 0.1, Sodium 136, Potassium 3.8, Chloride 108 H, Carbon Dioxide 21 L, Anion Gap 10.8, BUN 18, Creatinine 1.70 H D, Estimated Creat Clear 42, Estimated GFR 41 L, Est GFR ( Amer) 49 L D, Glucose 159 H, Calcium 8.9, Total Bilirubin 0.3, Direct Bilirubin 0.2, Conjugated Bilirubin 0.0, Indirect Bilirubin 0.1, Unconjugated Bilirubin 0.1, AST 51 D, ALT 47 D, Alkaline Phosphatase 72, Total Protein 6.5 D, Albumin 2.9 L, Triglycerides 344 H, Cholesterol 207 H, LDL Cholesterol Direct 112.16, VLDL Cholesterol 69 H, HDL Cholesterol 19 L, Cholesterol/HDL Ratio 10.9 H I & O for Last 24 hours: Intake & Output 01/13/25 01/14/25 01/15/25 01/16/25 23:59 23:59 23:59 23:59 Intake Total 240 / 540 300 / 500 200 / 200 Output Total 0 / 0 1900 / 2200 300 / 300 Balance 240 / 540 -1600 / -1700 -100 / -100 Weight 280 lb 281 lb 3.2 oz 283 lb 9.6 oz Constitutional Constitutional: no acute distress and morbidly obese *Routine HEENT Exam Head: Present normocephalic and atraumatic ENT: Present mucous membranes moist *Routine Neck Exam Neck: Present supple, full ROM and normal carotid upstroke; Absent JVD, carotid bruit or lymphadenopathy *Routine Respiratory Exam Respiratory: Present CTA bilaterally, normal respiratory effort, able to speak in complete sentences and symmetric chest movement *Routine Cardiovascular Exam Cardiovascular: Present RRR, Normal S1 and Normal S2; Absent murmur or gallop *Routine Abdominal Exam Abdominal: Present soft and normoactive bowel sounds; Absent tenderness, distended or organomegaly *Routine Extremities Exam Extremities: Present full ROM, pulses intact and normal capillary refill; Absent cyanosis, clubbing or edema *Routine Skin Exam Skin: Present intact and warm; Absent erythema *Routine Neurological Exam Neurological: Present alert, oriented X3 and CN II-XII intact; Absent sensory deficit or motor deficit Routine Psychiatric Exam Psychiatric: Present normal affect Progress Note: A&P Assessment and plan (1) Pulmonary embolism: Status: Acute (2) Lung nodule: Status: Acute (3) Atypical pneumonia: Status: Acute (4) Hypertension: Status: Acute (5) CAD (coronary artery disease): Status: Chronic (6) HLD (hyperlipidemia): Status: Chronic (7) Hypertensive heart disease: Status: Chronic Assessment and Plan Assessment and Plan for All Diagnoses:: Plan: 1. The patient was admitted to the hospital and found to have multiple bilateral pulmonary emboli. He was on high flow oxygen with a Venturi mask at 15 L/min. He was taken to the [facility] yesterday and underwent pulmonary angiogram with mechanical thrombectomy to the right and left pulmonary arteries. He tolerated this well and is now on room air maintaining his oxygen saturations. 2. The patient will need to remain on Xarelto 15 mg p.o. twice daily for 21 days then Xarelto 20 mg daily thereafter for at least 6 months. 3. The patient does have a history of coronary artery disease. His troponin is negative. No plans for invasive left cardiac catheterization at this time. 4. His blood pressure is well-controlled. Continue ramipril, bisoprolol and amlodipine. 5. Her LDL goal is less than 55. His LDL is 112. Will start him on Crestor 20 mg p.o. nightly. 6. Echocardiogram shows a normal ejection fraction without significant heart strain. 7. The patient's creatinine is 1.7. 8. The patient has pneumonia. The patient is getting antibiotics. 9. The patient is stable from a cardiac standpoint at this time. Once he is cleared from the hospitalist and pulmonology standpoint he can be discharged home. He will need to follow-up in cardiology clinic in 1 to 2 weeks. He states he has an appointment already scheduled on January 26. The patient can be discharged on the following cardiac medications when he is stable for discharge: Norvasc 10 mg daily Bisoprolol 10 mg daily Fenofibrate 48 mg daily Ramipril 5 mg daily Omeprazole 40 mg daily Crestor 20 mg daily Xarelto 15 mg p.o. twice daily for 21 days then 20 mg daily thereafter. Thank you for the opportunity to help participate in the care of this patient. All recommendations and orders are per Dr. Sorto.
--- NOTE | 2025-01-16 16:41 | EXP.DC.SUM ---
General Admission date:: 01/14/25 Discharge date: 01/16/25 HPI HPI HPI: Patient is a 65-year-old male with past medical history of CAD CKD hypertension hyperlipidemia who presents to the hospital due to complaints of chest pain and shortness of breath. According to the patient his chest pain is worse with exertion as well as any shortness of breath. On further evaluation with CTA chest patient was found to have bilateral pulmonary embolism. No reported fever chills diarrhea constipation dysuria. Hospital Course Hospital Course Hospital Course: Patient is a 65-year-old male with past medical history of CAD CKD hypertension hyperlipidemia who presents to the hospital due to complaints of chest pain and shortness of breath. According to the patient his chest pain is worse with exertion as well as any shortness of breath. On further evaluation with CTA chest patient was found to have bilateral pulmonary embolism. No reported fever chills diarrhea constipation dysuria. patient has thrombectomy, and was found to be on room maintaing oxygen and was found stable for dc on xarelto and follow up with cardiology as OP Exam Data for Last 24 hours Vital signs and Labs for Last 24 Hours: Temp Pulse Resp BP Pulse Ox O2 Del Method O2 Flow Rate 97.7 F 89 18 123/71 98 Room Air 2 01/16/25 12:00 01/16/25 13:09 01/16/25 13:09 01/16/25 13:09 01/16/25 13:09 01/16/25 13:09 01/16/25 13:09 FiO2 21 01/16/25 13:09 Laboratory Results - last 24 hr 01/15/25 17:04: Activated Clotting Time 314 H* 01/16/25 05:38: WBC 9.9, RBC 3.83 L, Hgb 11.7 L, Hct 36.5 L, MCV 95.3 H, MCH 30.5, MCHC 32.1, RDW 14.4, Plt Count 186, MPV 11.9 H, Neut % (Auto) 60.7, Lymph % (Auto) 23.0, [place] % (Auto) 9.8 H, Eos % (Auto) 4.1, Baso % (Auto) 0.7, Neut # (Auto) 6.0, Lymph # (Auto) 2.3, [place] # (Auto) 1.0, Eos # (Auto) 0.4, Baso # (Auto) 0.1, Sodium 136, Potassium 3.8, Chloride 108 H, Carbon Dioxide 21 L, Anion Gap 10.8, BUN 18, Creatinine 1.70 H D, Estimated Creat Clear 42, Estimated GFR 41 L, Est GFR ( Amer) 49 L D, Glucose 159 H, Calcium 8.9, Total Bilirubin 0.3, Direct Bilirubin 0.2, Conjugated Bilirubin 0.0, Indirect Bilirubin 0.1, Unconjugated Bilirubin 0.1, AST 51 D, ALT 47 D, Alkaline Phosphatase 72, Total Protein 6.5 D, Albumin 2.9 L, Triglycerides 344 H, Cholesterol 207 H, LDL Cholesterol Direct 112.16, VLDL Cholesterol 69 H, HDL Cholesterol 19 L, Cholesterol/HDL Ratio 10.9 H I & O for Last 24 hours: Intake & Output 01/13/25 01/14/25 01/15/25 01/16/25 23:59 23:59 23:59 23:59 Intake Total 240 / 540 300 / 500 880 / 880 Output Total 0 / 0 1900 / 2200 300 / 300 Balance 240 / 540 -1600 / -1700 580 / 580 Weight 127.006 kg 127.55 kg 128.639 kg Constitutional Constitutional: no acute distress *Routine HEENT Exam Head: Present normocephalic Eye: Present EOMI and PERRL ENT: Present mucous membranes moist *Routine Neck Exam Neck: Present supple; Absent lymphadenopathy *Routine Respiratory Exam Respiratory: Present CTA bilaterally *Routine Cardiovascular Exam Cardiovascular: Present RRR *Routine Abdominal Exam Abdominal: Present soft and normoactive bowel sounds; Absent tenderness *Routine Extremities Exam Extremities: Absent cyanosis, clubbing or edema *Routine Skin Exam Skin: Present warm; Absent rash *Routine Neurological Exam Neurological: Present alert and oriented X3 Results Data Completed and Pending Labs on day of discharge: Labs from last 24 hours 01/16/25 01/15/25 05:38 17:04 WBC 9.9 RBC 3.83 L Hgb 11.7 L Hct 36.5 L MCV 95.3 H MCH 30.5 MCHC 32.1 RDW 14.4 Plt Count 186 MPV 11.9 H Neut % (Auto) 60.7 Lymph % (Auto) 23.0 [place] % (Auto) 9.8 H Eos % (Auto) 4.1 Baso % (Auto) 0.7 Neut # (Auto) 6.0 Lymph # (Auto) 2.3 [place] # (Auto) 1.0 Eos # (Auto) 0.4 Baso # (Auto) 0.1 Activated Clotting Time 314 H* Sodium 136 Potassium 3.8 Chloride 108 H Carbon Dioxide 21 L Anion Gap 10.8 BUN 18 Creatinine 1.70 H D Estimated Creat Clear 42 Estimated GFR 41 L Est GFR ( Amer) 49 L D Glucose 159 H Calcium 8.9 Total Bilirubin 0.3 Direct Bilirubin 0.2 Conjugated Bilirubin 0.0 Indirect Bilirubin 0.1 Unconjugated Bilirubin 0.1 AST 51 D ALT 47 D Alkaline Phosphatase 72 Total Protein 6.5 D Albumin 2.9 L Triglycerides 344 H Cholesterol 207 H LDL Cholesterol Direct 112.16 VLDL Cholesterol 69 H HDL Cholesterol 19 L Cholesterol/HDL Ratio 10.9 H DS: Diagnosis Discharge Diagnosis (1) Pulmonary embolism: Status: Acute Code(s): I26.99 - Other pulmonary embolism without acute cor pulmonale Qualifiers: Pulmonary embolism type: multiple subsegmental (without acute cor pulmonale) Qualified Code(s): I26.94 - Multiple subsegmental thrombotic pulmonary emboli without acute cor pulmonale (2) Lung nodule: Status: Acute Code(s): R91.1 - Solitary pulmonary nodule (3) Atypical pneumonia: Status: Acute Code(s): J18.9 - Pneumonia, unspecified organism (4) Hypertension: Status: Acute Code(s): I10 - Essential (primary) hypertension Qualifiers: Hypertension type: primary hypertension Qualified Code(s): I10 - Essential (primary) hypertension (5) CAD (coronary artery disease): Status: Chronic Code(s): I25.10 - Atherosclerotic heart disease of ute coronary artery without angina pectoris Qualifiers: Coronary Disease-Associated Artery/Lesion type: ute artery [place] vs. transplanted heart: ute heart Associated angina: with stable angina Qualified Code(s): I25.118 - Atherosclerotic heart disease of ute coronary artery with other forms of angina pectoris (6) HLD (hyperlipidemia): Status: Chronic Code(s): E78.5 - Hyperlipidemia, unspecified Qualifiers: Hyperlipidemia type: mixed hyperlipidemia Qualified Code(s): E78.2 - Mixed hyperlipidemia (7) Hypertensive heart disease: Status: Chronic Code(s): I11.9 - Hypertensive heart disease without heart failure Qualifiers: Heart failure presence: without heart failure Qualified Code(s): I11.9 - Hypertensive heart disease without heart failure Meds Home Medications and Allergies Home Medications ?Medication ?Instructions ?Recorded ?Confirmed ?Type [id number]-[id number] 250 1 tab PO Q4-6H PRN headaches 09/17/17 01/14/25 History mg-250 mg-65 mg tablet (Excedrin Migraine) fenofibrate nanocrystallized 48 mg 48 mg PO DAILY #90 tabs 05/30/24 01/14/25 Rx tablet amlodipine 10 mg tablet 10 mg PO DAILY High blood pressure 09/15/24 01/14/25 Rx #90 tabs bisoprolol fumarate 10 mg tablet 10 mg PO DAILY High blood pressure 09/15/24 01/14/25 Rx #90 tabs ramipril 5 mg capsule 5 mg PO DAILY High blood pressure 09/15/24 01/14/25 Rx #90 caps omeprazole 40 mg capsule,delayed 40 mg PO HS 01/14/25 01/14/25 History release famotidine 20 mg tablet 20 mg PO HS 01/15/25 01/15/25 History cefdinir 300 mg capsule 300 mg PO BID 5 days #10 caps 01/16/25 Rx rivaroxaban 15 mg tablet (Xarelto) 15 mg PO BID 21 days #42 tabs 01/16/25 Rx New Prescriptions to Start Prescriptions: cefdinir Kay Bell rivaroxaban [Xarelto] Kay Bell Allergies Allergy/AdvReac Type Severity Reaction Status Date / Time Sulfa (Sulfonamide AdvReac Verified 01/14/25 11:22 Antibiotics) Discharge Plan Disposition Patient Disposition: Home, Self-Care Condition: Fair Discharge Order Discharge Orders: Discharge Order (Routine); Ordered 01/16/25 Ordered By: Kay Bell Follow up Plan Follow up with: Altagracia Ronquillo APRN [Nurse Practitioner, Medical] - 01/27/25 8:30 am Charanjit Olvera PA [Physician Freight Dispatcher, Cardiology] - 01/22/25 2:15 pm Jefry Mares MD [Physician, Pulmonology] - 02/12/25 1:00 pm Prescriptions/Medication Reconciliation: New cefdinir 300 mg capsule 300 mg PO BID 5 Days Qty: 10 0RF Xarelto 15 mg tablet 15 mg PO BID 21 Days Qty: 42 0RF Continued knscjjc-vsufhzrubjvin-zmpkcimc [Excedrin Migraine] 250-250-65 mg tablet 1 tab PO Q4-6H PRN (Reason: headaches) fenofibrate nanocrystallized 48 mg tablet 48 mg PO DAILY Qty: 90 5RF amlodipine 10 mg tablet 10 mg PO DAILY Qty: 90 3RF ramipril 5 mg capsule 5 mg PO DAILY Qty: 90 3RF bisoprolol fumarate 10 mg tablet 10 mg PO DAILY Qty: 90 3RF omeprazole 40 mg capsule,delayed release(DR/EC) 40 mg PO HS famotidine 20 mg tablet 20 mg PO HS Problem Reconciliation Problems Reviewed?: Yes Patient Discharge Instructions ACTIVITY: Continue current activity DIET: continue same diet Patient Instructions: Pulmonary Embolism Print Language: Mongolian Providers Primary Care Provider: Provider,Referral Admit Provider: Roberto Shi Attending Provider: Roberto Shi
--- NOTE | 2025-01-20 09:25 | SW/DCPLANNER ---
Spoke with patient on the phone. Patient stated that he is doing good. Patient stated that he is aware of his upcoming appointments. Patient stated that his new medicine was brought to his room before he was discharged. Patient stated that he has no concerns or questions at this time. Georgina Sanches
== END 2025-01-16 17:07 | disposition home or self-care (01) | DRG 163 ==
LOC: ER 16:06 → 2ND 16:38
PROVIDERS: Internal Medicine; Internal Medicine Pulmonary Disease; Nurse Practitioner Family; Admitting Provider Internal Medicine Adolescent Medicine; Emergency Provider Emergency Medicine; Visit Provider Internal Medicine Adolescent Medicine
PROC: 02CR3ZZ Extirpation of Matter from Left Pulmonary Artery, Percutaneous Approach (ICD-10-PCS; principal; 2025-01-15 14:45)
DX: I26.99 Other pulmonary embolism without acute cor pulmonale (principal); J18.9 Pneumonia, unspecified organism; I26.94 Multiple subsegmental thrombotic pulmonary emboli without acute cor pulmonale; I13.10 Hypertensive heart and chronic kidney disease without heart failure, with stage 1 through stage 4 chronic kidney disease, or unspecified chronic kidney disease; N18.30 Chronic kidney disease, stage 3 unspecified; I25.118 Atherosclerotic heart disease of native coronary artery with other forms of angina pectoris; E78.2 Mixed hyperlipidemia; R91.1 Solitary pulmonary nodule; Z79.01 Long term (current) use of anticoagulants; Z79.82 Long term (current) use of aspirin; Z88.2 Allergy status to sulfonamides
CPT/HCPCS: 36415; 71046; 71275; 80048; 80053; 80061; 80076; 82803; 84145; 84484; 85025; 85347; 85378; 85610; 86803; 87389; 87633; 93005; 93306; 93970; 94618; 94760; 94761; 99152; 99153; C1757; C1769; C1894; J0696; J1200; J1644; J1650; J2003; J2250; J3010; J7040; J7050; Q9967

== ENCOUNTER 2025-01-27 09:55 | Outpatient (CLI) | payer MEDICAID, SELFPAY ==
--- OUTSIDE RECORDS SUMMARY | 2025-01-27 10:11 | XMS_ITS | Clinical Summary ---
Author Organization Healthcare Address [address] [place] [address] Care Team Providers Care Inventory And Pricing Associate Name Role Phone Baltazar Walsh MD Primary [...] of Treatment Not on file Care Teams Inventory And Pricing Associate Relationship Specialty Start Date End Date Baltazar Walsh MD [address] [place] [id number] PCP - General 11/05/20
--- OUTSIDE RECORDS SUMMARY | 2025-01-27 10:11 | XMS_ITS | Clinical Summary ---
Author Organization [facility] Address [address] [place] [address] Phone Care Team Providers Care Chief Engineer Production Name Role Phone Nico Aadmes MD, Harold Primary Care Provider + Allergies [...] patient's age to complete this topic Insurance [facility] * Guarantor: Tommy Johnston Account Type Relation to Patient Date of Phone Billing Address [place] Personal Family Self Care Teams Chief Engineer Production Relationship Specialty Start Date End Date Baltazar Walsh MD [address] [place] [phone] PCP - General Family Medicine 10/29/11
--- OUTSIDE RECORDS SUMMARY | 2025-01-27 10:11 | XMS_ITS | Encounter Summary ---
Author Organization [facility] Address [address] [place] [address] Phone Care Team Providers Care Pondman Name Role Phone Carlos Trevino MD Primary Care Provider [phone] Reason for Visit * Reason Onset Date Comments Fyi 01/15/2025 Encounter Details Date Type Department Care Team (Late st Contact Info) Description 01/15/2025 Telephone [facility] [id number] [place], [place] [id number] Сергей [place] [id number] [place] [address] Social History Tobacco Use Types Packs/Day Years Used Date Smoking Tobacco: Never Smokeless Tobacco: Never Alcohol Use Standard Drinks/Week Comments No 0 [...] file Not on file Not on file documented as of this encounter Miscellaneous Notes * Telephone Encounter - Сергей Jennings MD - 01/15/2025 3:07 PM EDT Shoot. Thanks for letting me know * Telephone Encounter - Cara Ayers - 01/15/2025 1:44 PM EDT Telephone Call Name of Patient: Tommy Gonzalez Kamryncamilla Caller: Contact #:[phone] Dr:Dick Office Location: Call regarding:Patient's called and stated patient is hospitalized at [facility] in [place], [place]. He has blood clots in both of his lungs. documented in this encounter Plan of Treatment Upcoming Encounters Date Type Department Care Team (Late st Contact Info) Description 04/08/2025 10:00 AM EDT Office Visit [facility] [id number] [place] [address] Сер[place] [id number] [place] [address] documented as of this encounter Visit Diagnoses Not on filedocumented in this encounter Additional Health Concerns Assessment Noted Time PHQ-9 Depression Total Score: 1 07/09/19 9:46 AM EST PHQ-2 Depression Total Score: 0 07/09/19 9:46 AM EST documented as of this encounter Care Teams Pondman Relationship Specialty Start Date End Date Carlos Trevino MD PCP - General Family Medicine 04/02/19 documented as of this encounter
--- OUTSIDE RECORDS SUMMARY | 2025-01-27 10:11 | XMS_ITS | Clinical Summary ---
Author Organization [facility] Address [address] [place] [id number] Care Team Providers Care Home Service Consultant Name Role Phone Nico Adames MD, Baltazar [...] therelease of HIV test results or diagnoses. [id number] Allergies No known active allergies Medications [...] of Treatment Not [place] [address] BLUE ACCESS Advance Directives For more information, please contact: [phone] * Full Code (Latest Code Status on File) Date Activated Date Inactivated Comments 06/23/2013 9:26 PM 06/26/2013 5:08 PM Care Teams Home Service Consultant Relationship Specialty Start Date End Date Baltazar Walsh MD [address] [place] [address] PCP - General Family Medicine 06/23/13
--- OUTSIDE RECORDS SUMMARY | 2025-01-27 10:11 | XMS_ITS | Referral Summary ---
Author Organization [facility] Care Team Providers Care Professional Fighter Name Role Phone Carlos Trevino MD Primary Care Provider [phone] Encounters Date Type Department Care Team Description 01/15/2025 Telephone [facility] [id number] [place], [place] [phone] Сергей Jennings MD from Last 3 Months Allergies No known active allergies Medications bisoprolol [...] Description 04/08/2025 10:00 AM EDT Office Visit [facility] [id number] [place], [place] [id number] Сергей Jennings [place] [id number] [place] [address] Insurance [employer] ALL OTHERS NOT MEDICARE MEDICAID [place] Jay JOHNNIE CAMPBELL [id number] Care Teams Professional Fighter Relationship Specialty Start Date End Date Calros Trevino MD PCP - General Family Medicine 04/02/19
--- OUTSIDE RECORDS SUMMARY | 2025-01-27 10:11 | XMS_ITS | Clinical Summary ---
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 Encounters Date Type Department Care Team Description 01/15/2025 Telephone [facility] [id number] [place] [address] Сергей Jennings MD from Last 3 Months Family History Medical History Relation Name Comments [...] Description 04/08/2025 10:00 AM EDT Office Visit [facility] [id number] [place] [address] Сергей [place] [id number] [place] [address] Health Maintenance Due Date Last Done Comments [...] patient's age to complete this topic [place] [id number] [facility] ALL OTHERS NOT MEDICARE MEDICAID [place] Care Teams Net Application Architect Relationship Specialty Start Date End Date Carlos Trevino MD PCP - General Family Medicine 04/02/19
--- NOTE | 2025-01-27 10:20 | XR_ITS ---
FINAL REPORT TECHNIQUE: Chest PA & Lateral CLINICAL HISTORY: atypical pneumonia COMPARISON: 01/14/2025 FINDINGS: 2 views of the chest were performed. The heart size is normal. The mediastinum is within normal limits. There is no acute cardiopulmonary process. There are no pleural effusions. There is no pneumothorax. The bony thorax appears intact. IMPRESSION: No active disease. Reviewed, Interpreted and Dictated by Marvin Mcgovern MD Transcribed by Aparna Evans Authenticated and . [facility]
[2025-01-27 10:29] LABS: Hematocrit 37.9 % (42.0-52.0); Hemoglobin 12.1 g/dL (14.1-18.0); Immature Granulocytes % 1.8 %; Mean Corpuscular HGB Conc 31.9 g/dL (31.8-35.4); Mean Corpuscular Hemoglobin 30.6 pg (27.0-31.2); Mean Corpuscular Volume 95.9 fl (80-94); Nucleated Red Blood Cells % 0 %; Platelet Count 342 K/mm3 (142-424); Red Blood Count 3.95 M/mm3 (4.60-6.20); Red Cell Distribution Width-SD 50.9 fL; White Blood Count 8.8 K/mm3 (4.8-10.8)
[2025-01-27 11:02] LABS: Albumin Level 3.3 g/dl (3.5-5.0); Chloride 106 mmol/L (98-107); Potassium 4.6 mmoL/L (3.5-5.1); Sodium 135 mmol/L (136-145)
[2025-01-27 11:05] LABS: Alanine Aminotransferase 50 U/L (12-78); Alkaline Phosphatase 69 U/L (38-126); Aspartate Amino Transferase 44 U/L (17-59); Bilirubin,Total 0.2 mg/dl (0.2-1.3); Blood Urea Nitrogen 18 mg/dl (9-20); Carbon Dioxide 23 mmol/L (22.0-30.0); Creatinine,Serum 1.40 mg/dl (0.66-1.25); Estimated Glomerular Filt Rate 51 ml/min (>60); GFR (African American) 62 ML/MIN (>60); Total Protein,Serum 7.8 g/dl (6.3-8.2)
[2025-01-27 11:06] LABS: Calcium 9.4 mg/dl (8.4-10.2); Glucose 181 mg/dl (74-100)
[2025-01-27 11:10] LABS: Albumin/Globulin Ratio 0.7 (1.1-1.8); Anion Gap 10.6 mEq/L (5-15); Globulin 4.5 g/dL (1.3-3.2)
== END 2025-01-27 23:59 | disposition home or self-care (01) ==
LOC: LAB 09:58
PROVIDERS: PCP Nurse Practitioner Family; Visit Provider Nurse Practitioner Family
DX: J18.9 Pneumonia, unspecified organism (principal); I26.94 Multiple subsegmental thrombotic pulmonary emboli without acute cor pulmonale; R91.1 Solitary pulmonary nodule
CPT/HCPCS: 36415; 71046; 80053; 85025

== ENCOUNTER 2025-03-27 07:25 | Outpatient (CLI) | payer MEDICAID, SELFPAY ==
--- OUTSIDE RECORDS SUMMARY | 2025-03-27 07:28 | XMS_ITS | Clinical Summary ---
Author Organization [facility] 95 Care Team Providers Care Engine Testing Supervisor Name Role Phone Carlos Trevino MD Primary Care Provider Allergies No known active allergies Medications bisoprolol [...] Type Department Care Team Description 01/15/2025 Telephone [facility] [id number] [place] [address] Сергей Jennings MD from Last [...] Description 04/08/2025 10:00 AM EDT Office Visit [facility] [address] [place] [address] Сергей Jennings MD [id number] [place] [address] Health Maintenance Due Date Last [...] on patient's age to complete this topic Care Teams Engine Testing Supervisor Relationship Specialty Start Date End Date Carlos Trevino MD PCP - General Family Medicine 04/02/19
--- OUTSIDE RECORDS SUMMARY | 2025-03-27 07:29 | XMS_ITS | Clinical Summary ---
Author Organization Address [address] [place] [address] Care Team Providers Care Junior Web Developer Name Role Phone Nico Adames MD, Baltazar [...] therelease of HIV test results or diagnoses. [id number] Allergies No known active allergies Medications [...] of Treatment Not on [place] [address] BLUE ACCESS Advance Directives For more information, please contact: [phone] * Full Code (Latest Code Status on File) Date Activated Date Inactivated Comments 06/23/2013 9:26 PM 06/26/2013 5:08 PM Care Teams Junior Web Developer Relationship Specialty Start Date End Date Baltazar Walsh MD [address] [place] [address] PCP - General Family Medicine 06/23/13
--- OUTSIDE RECORDS SUMMARY | 2025-03-27 07:29 | XMS_ITS | Encounter Summary ---
Author Organization [facility] Address [address] [place] [address] Phone Care Team Providers Care Rough Rounder Name Role Phone Carlos Trevino MD Primary Care Provider [phone] Reason for Visit * Reason Onset Date Comments Fyi 01/15/2025 Encounter Details Date Type Department Care Team (Late st Contact Info) Description 01/15/2025 Telephone [facility] [id number] [place], [place] [id number] Сергей [place] [id number] [place] [address] Social History Tobacco Use Types [...] EDT Telephone Call Name of Patient: Tommy Gonzaelz Kamryncamilla Caller: Contact #:[phone] Dr:Dick Office Location: Call regarding:Patient's called and stated patient is hospitalized at [facility] in [place], [place]. He has blood clots in both of his lungs. documented in this encounter Plan of Treatment Upcoming Encounters Date Type Department Care Team (Late st Contact Info) Description 04/08/2025 10:00 AM EDT Office Visit [facility] [id number] [place] [address] Сер[place]ей [place] [id number] [place] [address] documented as of this encounter Visit Diagnoses Not on filedocumented in this encounter Additional Health Concerns Assessment Noted Time PHQ-9 Depression Total Score: 1 07/09/19 9:46 AM EST PHQ-2 Depression Total Score: 0 07/09/19 9:46 AM EST documented as of this encounter Care Teams Rough Rounder Relationship Specialty Start Date End Date Carlos Trevino MD PCP - General Family Medicine 04/02/19 documented as of this encounter
--- OUTSIDE RECORDS SUMMARY | 2025-03-27 07:29 | XMS_ITS | Clinical Summary ---
Author Organization [facility] Address [address] [place] [address] Phone Care Team Providers Care Wood Pile Driver Operator Name Role Phone Nico Adames MD, Harold [...] COVID-19 Vaccine (1 - 2023-2 5 season) 2025 Influenza Vaccine (#1) 2025 Hepatitis B Vaccine Aged Out No longe r eligible based on patient's age to complete this topic Meningococcal B Vaccine Aged Out No l onger eligible based on patient's age to complete this topic [facility] [place] [address] * Guarantor: Tommy Johnston Account Type Relation to Patient Date of Phone Billing Address [place] Personal Family Self Care Teams Wood Pile Driver Operator Relationship Specialty Start Date End Date Baltazar Walsh MD [address] [place] [id number] PCP - General Family Medicine 10/29/11
--- OUTSIDE RECORDS SUMMARY | 2025-03-27 07:29 | XMS_ITS | Clinical Summary ---
Author Organization Healthcare Address [address] [place] [address] Care Team Providers Care Printed Circuit Layout Taper Name Role Phone Baltazar Walsh MD Primary [...] of Treatment Not on file Care Teams Printed Circuit Layout Taper Relationship Specialty Start Date End Date Baltazar Walsh MD [address] [place] [id number] PCP - General 11/05/20
--- NOTE | 2025-03-27 07:30 | CT_ITS ---
FINAL REPORT TECHNIQUE: Axial images were obtained through the chest without contrast. Multiplanar reconstructions in the sagittal and coronal planes were subsequently performed. This study was performed with techniques to keep radiation doses as low as reasonably achievable (ALARA). Individualized dose reduction techniques using automated exposure control or adjustment of mA and/or kV according to the patient's size were employed. CLINICAL HISTORY: sob COMPARISON: 01/14/2025 CTA of the chest FINDINGS: CHEST CT: There is no mediastinal or hilar mass or adenopathy. The previously noted upper lobe nodules and infiltrates present on the prior CT of 01/14/2025 have resolved. The heart size is normal. There is no pericardial or pleural effusion. There is a midline subcutaneous nodule anterior to the sternum, best seen on image #31 of series 2, unchanged since the prior CT of December. Limited images of the upper abdomen demonstrate moderate fatty infiltration of the liver. No suspicious infiltrate or nodule identified. IMPRESSION: Previously noted upper lobe nodules and infiltrates seen on the prior CT of 01/14/2025 have resolved. Midline subcutaneous nodule anterior to the sternum and the chest wall is unchanged since the prior CT. Reviewed, Interpreted and Dictated by Marvin Mcgovern MD Transcribed by Taisha Harley Authenticated and [facility]
[2025-03-27] MEDS: ALBUTEROL 0.083% 2.5 MG/3 ML NEB IH (08:46)
== END 2025-03-27 23:59 | disposition home or self-care (01) ==
LOC: RAD 07:26
PROVIDERS: PCP Nurse Practitioner Family; Visit Provider Internal Medicine Pulmonary Disease
DX: I26.99 Other pulmonary embolism without acute cor pulmonale (principal); R91.8 Other nonspecific abnormal finding of lung field; R94.2 Abnormal results of pulmonary function studies
CPT/HCPCS: 71250; 94060; 94618; 94726; 94729; 94762